=== PATIENT | female | born 1975 | race Caucasian/White ===

== ENCOUNTER 2016-10-26 15:33 | Inpatient (IN) | payer OTHER ==
--- NOTE | 2016-10-26 16:57 | EDPHY ---
H & P Stated Complaint: Abdo surgery at [facility], released yesterday, now SOB, low oxygen level. Time Seen by Provider: 10/26/16 16:41 HPI/ROS: CHIEF COMPLAINT: Shortness of breath, tachycardia HISTORY OF PRESENT ILLNESS: The patient is a 41-year-old female who was referred by her primary Dr. Toma José. She has a history of small-bowel obstruction 2 weeks ago for unknown reasons. She had laparoscopic surgery by Dr. Villatoro at [facility]. Her obstructions spontaneously resolved and they could not find a cause. She was discharged and then admitted again a few days later for 1 week. She had abdominal pain at that time and no obvious source could be found. She was discharged 2 days ago. On Sunday while she is at the hospital she had bilateral leg edema and mild shortness of breath. They did a CT scan that was negative for PE but she reports found a little bit of "fluid around her lungs ". She denies fevers or chest pain. Today she presented to her primary because she felt short of breath and her room air oxygen saturation was 82% and heart rate was 120. She was referred here. REVIEW OF SYSTEMS: Constitutional: denies: chills, fever, recent illness, recent injury EENTM: denies: blurred vision, double vision, nose congestion Respiratory: See HPI Cardiac: See HPI denies: chest pain, irregular heart rate, lightheadedness, palpitations Gastrointestinal/Abdominal: denies: abdominal pain, diarrhea, nausea, vomiting, blood streaked stools Genitourinary: denies: dysuria, frequency, hematuria, pain Musculoskeletal: denies: joint pain, muscle pain Skin: denies: lesions, rash, jaundice, bruising Neurological: denies: headache, numbness, paresthesia, tingling, dizziness, weakness Hematologic/Lymphatic: denies: blood clots, easy bleeding, easy bruising Immunologic/allergic: denies: HIV/AIDS, transplant EXAM: GENERAL: Well-appearing, well-nourished and in no acute distress. HEAD: Atraumatic, normocephalic. EYES: Pupils equal round and reactive to light, extraocular movements intact, sclera anicteric, conjunctiva are normal. ENT: TMs normal, nares patent, oropharynx clear without exudates. Moist mucous membranes. NECK: Normal range of motion, supple without lymphadenopathy or JVD. LUNGS: Breath sounds clear to auscultation bilaterally and equal. No wheezes rales or rhonchi. HEART: Regular rate and rhythm without murmurs, rubs or gallops. ABDOMEN: Soft, nontender, normoactive bowel sounds. No guarding, no rebound. No masses appreciated. BACK: No CVA tenderness, no spinal tenderness, step-offs or deformities EXTREMITIES: Normal range of motion, no pitting or edema. No clubbing or cyanosis. NEUROLOGICAL: Cranial nerves II through XII grossly intact. Normal speech, normal gait. 5/5 strength, normal movement in all extremities, normal sensation PSYCH: Normal mood, normal affect. SKIN: Warm, dry, normal turgor, no visible rashes or lesions. Source: Patient Exam Limitations: No limitations - Personal History LMP (Females 10-55): Extended Cycle BCP/Inj Current Tetanus Diphtheria and Acellular Pertussis (TDAP): Yes - Medical/Surgical History Hx Asthma: No Hx Chronic Respiratory Disease: Yes Hx Diabetes: No Hx Cardiac Disease: No Hx Renal Disease: No Hx Cirrhosis: No Hx Alcoholism: No Hx HIV/AIDS: No Hx Splenectomy or Spleen Trauma: No Other PMH: PE's, small bowel obstruction - Family History Significant Family History: No pertinent family hx - Social History Smoking Status: Never smoked Alcohol Use: Sober Drug Use: None Constitutional: Initial Vital Signs Temperature (C) 36.8 C 10/26/16 15:41 Heart Rate 125 H 10/26/16 15:41 Respiratory Rate 18 10/26/16 15:41 Blood Pressure 136/104 H 10/26/16 15:41 O2 Sat (%) 91 L 10/26/16 15:41 O2 Delivery Mode Nasal Cannula O2 (L/minute) 2 Allergies/Adverse Reactions: gluten Allergy (Verified 10/26/16 15:45) Home Medications: Medication Instructions Recorded Herbals/Supplements -Info Only 1 dose AD 10/26/16 Hydrocodone/Acetaminophen [[place] 1 - 2 tab PO Q4H PRN 10/26/16 5/325 (*)] Levothyroxine Sodium 150 mcg PO DAILY@0500 10/26/16 Ondansetron Odt 4 mg PO Q4 PRN 10/26/16 Ranitidine HCl 150 mg PO DAILY 10/26/16 Medical Decision Making - Diagnostics EKG Interpretation: An EKG obtained and was read and documented in trace view. Please see trace view for full reading and report. Sinus tach, diffuse nonspecific T-wave abnormality Imaging: Discussed imaging studies w/ machine scallop cutter Radiologist ED Course/Re-evaluation: 7:15 p.m. the patient has bilateral pleural effusions right greater than left. I believe this is responsible for her tachycardia and hypoxia. I recommended thoracentesis. On bedside ultrasound the fluid collection is not obvious. I have consulted IR to evaluate. Ultrasound is the room now. I discussed the case with Dr. Barrientos who will admit to the medical service. The patient had right thoracentesis done by interventional Radiology. She is now breathing comfortably and is no longer tachycardic. Lab work is pending. She is being admitted to the hospital. Differential Diagnosis: Partial list of the Differential diagnosis considered include but were not limited to; pleural effusion, pericardial effusion, PE and although unlikely based on the history and physical exam, I also considered pneumonia, acute coronary disease, infection. - Data Points Laboratory Results: Laboratory Results 10/26/16 17:10 10/26/16 17:10 10/26/16 17:10 Smear Review By Lisbeth NEUMANN MD Medications Given: Acetaminophen (Tylenol) 650 mg PO Q4HRS PRN PRN Reason: Pain, Mild/Fever, Can Take PO Stop: 04/24/17 19:11 Last Admin: 10/27/16 13:17 Dose: 650 mg Cetirizine HCl (Zyrtec) 10 mg PO DAILY [facility] Stop: 04/25/17 12:14 Last Admin: 10/27/16 12:59 Dose: 10 mg Levothyroxine Sodium (Synthroid) 150 mcg PO DAILY@0500 [facility] Stop: 04/25/17 13:14 Last Admin: 10/27/16 13:14 Dose: 150 mcg Montelukast Sodium (Singulair) 10 mg PO DAILY@1800 [facility] Stop: 04/25/17 12:14 Last Admin: 10/27/16 12:59 Dose: 10 mg Discontinued Medications Furosemide (Lasix Injection) 20 mg IVP ONCE ONE Stop: 10/27/16 12:37 Last Admin: 10/27/16 12:59 Dose: 20 mg Sodium Chloride (Ns) 500 mls @ 1,500 mls/hr IV ONCE ONE Stop: 10/26/16 19:31 Last Admin: 10/26/16 22:53 Dose: Not Given Departure - Departure Disposition: [facility] Acute Clinical Impression: Pleural effusion Condition: Fair
[2016-10-26 17:20] LABS: ADD DIFF? YES; ADD MORPH? NO; ATYPICAL LYMPHOCYTE FLAG 0 (0-99); FRAGMENT RBC FLAG 0 (0-99); HEMATOCRIT 43.9 % (38.0-47.0); HEMOGLOBIN 15.1 g/dL (12.6-16.3); LEFT SHIFT FLG 0 (0-99); LIPEMIA HEMOLYSIS FLAG 90 (0-99); MEAN CELL HEMOGLOBIN 29.7 pg (27.9-34.1); MEAN CELL HEMOGLOBIN CONCENTR. 34.4 g/dL (32.4-36.7); MEAN CELL VOLUME 86.2 fL (81.5-99.8); MEAN PLATELET VOLUME 10.6 fL (8.7-11.7); PLATELET CLUMPS FLAG 0 (0-99); PLATELET COUNT 324 10^3/uL (150-400); RED BLOOD CELL COUNT 5.09 10^6/uL (4.18-5.33); RED CELL DISTRIBUTION WIDTH 13.2 % (11.5-15.2)
[2016-10-26 17:27] LABS: ADD SCAN? NO
[2016-10-26 17:30] LABS: INR 1.19 (0.83-1.16); PROTIME(PATIENT) 15.1 SEC (12.0-15.0)
[2016-10-26 17:31] LABS: APTT 30.2 SEC (23.0-38.0)
[2016-10-26 17:39] LABS: ALANINE AMINOTRANSFERASE 114 IU/L (9-52); ALBUMIN 3.5 g/dL (3.5-5.0); ALKALINE PHOSPHATASE 103 IU/L (38-126); ANION GAP 13 mEq/L (8-16); ASPARTATE AMINOTRANSFERASE 124 IU/L (14-46); BILIRUBIN,TOTAL 0.6 mg/dL (0.1-1.4); BILIRUBIN-CONJUGATED 0.4 mg/dL (0.0-0.5); BILIRUBIN-UNCONJUGATED 0.2 mg/dL (0.0-1.1); CALCIUM 7.7 mg/dL (8.5-10.4); CARBON DIOXIDE 25 mEq/l (22-31); CHLORIDE 99 mEq/L (97-110); CREATININE 0.5 mg/dL (0.6-1.0); GLOMERULAR FILTRATION RATE > 60; GLUCOSE 89 mg/dL (70-100); POTASSIUM 4.5 mEq/L (3.5-5.2); SODIUM 137 mEq/L (134-144); SPECIMEN HEMOLYSIS 114; TOTAL PROTEIN 6.2 g/dL (6.3-8.2)
[2016-10-26 17:49] LABS: TROPONIN I < 0.012 ng/mL (0.000-0.034)
--- NOTE | 2016-10-26 17:51 | CPEKG ---
Heart Rate: 121 RR Interval: 496 P-R Interval: 120 QRSD Interval: 76 QT Interval: 340 QTC Interval: 483 P [place]: 43 QRS [place]: 54 T Wave [place]: -44 EKG Severity - BORDERLINE ECG - EKG Impression: SINUS TACHYCARDIA EKG Impression: BORDERLINE T ABNORMALITIES, DIFFUSE LEADS Electronically Signed By: Herbie Phillips 26-Oct-2016 18:06:52
[2016-10-26] MEDS ORDERED: IOPAMIDOL (ISOVUE 370) 100 ML BTL IV ONE ×3 (17:52→18:32)
[2016-10-26 18:21] LABS: PLATELET ESTIMATE ADEQUATE (ADEQ)
[2016-10-26] MEDS ORDERED: NS 500 ML IV ONE (19:12)
[2016-10-26] MEDS ORDERED: ONDANSETRON 4 MG/2 ML VIAL IVP PRN (19:12)
[2016-10-26] MEDS ORDERED: ONDANSETRON DISINTEGRATING 4 MG TAB PO PRN (19:12)
[2016-10-26 19:27] LABS: LACTATE DEHYDROGENASE 1463 IU/L (313-618); SPECIMEN HEMOLYSIS 134
[2016-10-26 21:32] LABS: LD, PLEURAL FLUID 472 IU/L
[2016-10-26 22:24] LABS: COLOR YELLOW; LEUKOCYTE ESTERASE,URINE NEGATIVE (NEGATIVE); NITRITE,URINE NEGATIVE (NEGATIVE)
[2016-10-27] MEDS: ACETAMINOPHEN 325 MG TAB PO PRN ×3 (01:58→20:09)
--- NOTE | 2016-10-27 03:33 | PDGENHP ---
History and Physical - Chief Complaint Shortness of Breath - History of Present Illness 41 yo F with hx of hypothyroidism presents with shortness of breath. Patient has had a complicated recent medical course. She was in her usual state of health until 3 weeks ago when she developed acute abdominal pain. She went to [facility] and was found to have an SBO. She had an exploratory laparoscopy by Dr. Villatoro that found no acute findings; the SBO had self-resolved by that point. She went home and felt well for 2 days and then again developed severe abdominal pain. She again presented to [facility] where she was hospitalized for almost 2 weeks. During that stay she had an EGD and colonoscopy, which patient reports were normal. She says scans showed only jejunal inflammation, and there are plans for future pill endoscopy , which has not yet occurred. She also states that many autoimmune tests were run that were all negative. In addition, over the last week, she has had a rising WBC and eosinophil count as well as swelling. The swelling in her legs started just prior to leaving the hospital and she was prescribed diuretics for this. Despite outpatient oral diuretics, her swelling progressed. By the time she visited her PCP in [place] on the day of admission, she was hypoxic and short of breath. At that point her PCP told her to go to the ED for evaluation. In ED she was noted to have bilateral pleural effusions. She underwent a thoracentesis with IR and her symptoms improved significantly as a result. By the time of my evaluation patient was asymptomatic but still tachycardic. History Information - Allergies/Home Medication List Allergies/Adverse Reactions: gluten Allergy (Verified 10/26/16 15:45) Home Medications: Herbals/Supplements -Info Only 1 dose AD 10/26/16 [Last Taken Unknown] Hydrocodone/Acetaminophen [[place] 5/325 (*)] 1 - 2 tab PO Q4H PRN 10/26/16 [Last Taken 10/25/16] Levothyroxine Sodium 150 mcg PO DAILY@0500 10/26/16 [Last Taken 10/26/16] Ondansetron Odt 4 mg PO Q4 PRN 10/26/16 [Last Taken Unknown] Ranitidine HCl 150 mg PO DAILY 10/26/16 [Last Taken 10/26/16] I have personally reviewed and updated: family history, medical history - Past Medical History Additional medical history: Hypothyroid - Surgical History Additional surgical history: Recent laparoscopy - Family History Positive for: CAD - Social History Smoking Status: Never smoked Alcohol Use: Sober Drug Use: None Review of Systems Review of Systems: ROS: 10pt was reviewed & negative except for what was stated in HPI & below Physical Exam Physical Exam: Temp Pulse Resp BP Pulse Ox 36.8 C 134 H 18 112/96 H 91 L 10/26/16 15:41 10/26/16 21:55 10/26/16 21:55 10/26/16 21:55 10/26/16 21:55 O2 (L/minute) 2 Constitutional: no apparent distress, appears nourished Eyes: PERRL, EOMI Ears, Nose, Mouth, Throat: moist mucous membranes, no oral mucosal ulcers Cardiovascular: no murmur, rub, or gallop, tachycardia, edema (1+ b/l MOLLY) Respiratory: no respiratory distress, other (Decreased BS at the bases) Gastrointestinal: normoactive bowel sounds, soft, non-tender abdomen Skin: warm, normal color Musculoskeletal: full muscle strength, no muscle tenderness Neurologic: AAOx3, CN II-XII Intact Psychiatric: interacting appropriately, not anxious Lab Data & Imaging Review 10/27/16 03:56 10/26/16 17:10 WBC 32.37 10^3/uL (3.80-9.50) H 10/26/16 17:10 RBC 5.09 10^6/uL (4.18-5.33) 10/26/16 17:10 Hgb 15.1 g/dL (12.6-16.3) 10/26/16 17:10 Hct 43.9 % (38.0-47.0) 10/26/16 17:10 MCV 86.2 fL (81.5-99.8) 10/26/16 17:10 MCH 29.7 pg (27.9-34.1) 10/26/16 17:10 MCHC 34.4 g/dL (32.4-36.7) 10/26/16 17:10 RDW 13.2 % (11.5-15.2) 10/26/16 17:10 Plt Count 324 10^3/uL (150-400) 10/26/16 17:10 MPV 10.6 fL (8.7-11.7) 10/26/16 17:10 Neut % (Auto) Not Reported 10/26/16 17:10 Lymph % (Auto) Not Reported 10/26/16 17:10 [place] % (Auto) Not Reported 10/26/16 17:10 Eos % (Auto) Not Reported 10/26/16 17:10 Baso % (Auto) Not Reported 10/26/16 17:10 Nucleat RBC Rel Count 0.0 % (0.0-0.2) 10/26/16 17:10 Absolute Neuts (auto) Not Reported 10/26/16 17:10 Absolute Lymphs (auto) Not Reported 10/26/16 17:10 Absolute Monos (auto) Not Reported 10/26/16 17:10 Absolute Eos (auto) Not Reported 10/26/16 17:10 Absolute Basos (auto) Not Reported 10/26/16 17:10 Absolute Nucleated RBC 0.00 10^3/uL (0-0.01) 10/26/16 17:10 Immature Gran % Not Reported 10/26/16 17:10 Seg Neutrophils % 23 % 10/26/16 17:10 Lymphocytes % 9 % 10/26/16 17:10 Monocytes % 2 % 10/26/16 17:10 Eosinophils % 66 % 10/26/16 17:10 Basophils % 1 % 10/26/16 17:10 Immature Gran # Not Reported 10/26/16 17:10 Absolute Seg Neuts 7.45 10^/uL (1.70-6.50) H 10/26/16 17:10 Absolute Lymphocytes 2.91 10^3/uL (1.00-3.00) 10/26/16 17:10 Absolute Monocytes 0.65 10^3/uL (0.30-0.80) 10/26/16 17:10 Absolute Eosinophils 21.36 10^3/uL (0.03-0.40) H 10/26/16 17:10 Absolute Basophils 0.32 10^3/uL (0.02-0.10) H 10/26/16 17:10 RBC/WBC/PLT Morphology NORMAL (NORMAL) 10/26/16 17:10 Platelet Estimate ADEQUATE (ADEQ) 10/26/16 17:10 PT 15.1 SEC (12.0-15.0) H 10/26/16 17:10 INR 1.19 (0.83-1.16) H 10/26/16 17:10 APTT 30.2 SEC (23.0-38.0) 10/26/16 17:10 Sodium 137 mEq/L (134-144) 10/26/16 17:10 Potassium 4.5 mEq/L (3.5-5.2) 10/26/16 17:10 Chloride 99 mEq/L (97-110) 10/26/16 17:10 Carbon Dioxide 25 mEq/l (22-31) 10/26/16 17:10 Anion Gap 13 mEq/L (8-16) 10/26/16 17:10 BUN 7 mg/dL (7-23) 10/26/16 17:10 Creatinine 0.5 mg/dL (0.6-1.0) L 10/26/16 17:10 Estimated GFR > 60 10/26/16 17:10 Glucose 89 mg/dL (70-100) 10/26/16 17:10 Calcium 7.7 mg/dL (8.5-10.4) L 10/26/16 17:10 Total Bilirubin 0.6 mg/dL (0.1-1.4) 10/26/16 17:10 Conjugated Bilirubin 0.4 mg/dL (0.0-0.5) 10/26/16 17:10 Unconjugated Bilirubin 0.2 mg/dL (0.0-1.1) 10/26/16 17:10 AST 124 IU/L (14-46) H 10/26/16 17:10 ALT 114 IU/L (9-52) H 10/26/16 17:10 Alkaline Phosphatase 103 IU/L (38-126) 10/26/16 17:10 Lactate Dehydrogenase 1463 IU/L (313-618) H 10/26/16 17:10 Troponin I < 0.012 ng/mL (0.000-0.034) 10/26/16 17:10 NT-Pro-B Natriuret Pep 60 pg/mL (0-125) 10/26/16 17:10 Total Protein 6.2 g/dL (6.3-8.2) L 10/26/16 17:10 Albumin 3.5 g/dL (3.5-5.0) 10/26/16 17:10 Lipase 43 IU/L (23-300) 10/26/16 17:10 Specimen Hemolysis 134 10/26/16 17:10 Urine Color YELLOW 10/26/16 21:35 Urine Appearance CLEAR 10/26/16 21:35 Urine pH 6.0 (5.0-7.5) 10/26/16 21:35 Ur Specific [place] > 1.035 (1.002-1.030) H 10/26/16 21:35 Urine Protein NEGATIVE (NEGATIVE) 10/26/16 21:35 Urine Ketones 2+ (NEGATIVE) H 10/26/16 21:35 Urine Blood NEGATIVE (NEGATIVE) 10/26/16 21:35 Urine Nitrate NEGATIVE (NEGATIVE) 10/26/16 21:35 Urine Bilirubin NEGATIVE (NEGATIVE) 10/26/16 21:35 Urine Urobilinogen NEGATIVE EU (0.2-1.0) 10/26/16 21:35 Ur Leukocyte Esterase NEGATIVE (NEGATIVE) 10/26/16 21:35 Urine Glucose NEGATIVE (NEGATIVE) 10/26/16 21:35 Fluid pH Cancelled 10/26/16 20:20 Pleural Fluid Source PLEURAL 10/26/16 20:20 Pleural Color YELLOW (STRAW/YELL) 10/26/16 20:20 Pleural Appearance SL. HAZY (CLEAR) H 10/26/16 20:20 Pleural pH 7.6 (6.8-7.6) 10/26/16 20:20 Pleural WBC 4044 /mm3 10/26/16 20:20 Pleural RBC 7891 /MM3 10/26/16 20:20 Pleural LDH 472 IU/L 10/26/16 20:20 Pleural Glucose 86 mg/dL (55-113) 10/26/16 20:20 Imaging Review: CTA chest and Abd U/S performed. Results notable for: No PE, b/l pleural effusions R>L, diffuse esophageal thickening, and ascites. EKG Interpretation: Positive for: normal sinsus rhythm (Tachycardia) Assessment & Plan Assessment: 41 yo F w/ hx of hypothyroid presents with complex clinical course marked by unexplained anasarca and severe eosinophilia after recent admission at outside hospitals for abdominal pain. Plan: 1. Severe eosinophilia - WBC 32k with 66% eosinophils (21K absolute). Etiology of this unclear but would favor myeloproliferative disorder noting extreme elevation. Autoimmune, allergic, and infectious etiologies are also on the differential. Patient was recently hospitalized at [facility] and had extensive work-up, per patient, which did not elucidate a cause. She says extensive autoimmune work-up was negative. However, I believe that work-up was aimed at ascertaining a cause of her abdominal pain(now resolved), not specifically the eosinophilia. Per patient, she had mild eosinophilia at that point and was told it may have been a reaction to ranitidine or cyclobenzaprine. - Obtain records from [facility] - For now will send limited work-up: cytology (added to pleural fluid), SPEP, strongyloides IgG, and peripheral smear - Hematology consult for consideration of malignancy - Patient following with outpatient ID doctor 2. Anasarca - As evidenced by bilateral pleural effusions, ascites, and lower extremity edema. This progressed despite therapy with outpatient diuretics over the last week. Patient has no hx of cardiac, hepatic, or renal disease. Albumin 3.5 and UA without protein. Thoracentesis performed shortly after admission for symptomatic relief of SOB and diagnostic purposes as well. Pleural fluid was exudative by both protein and LDH criteria; particularly notable for WBC of 4k ( 91% eosinophils). I suspect anasarca is most likely related to the same process driving the eosinophilia, and may be a sign of organ dysfunction related to this. - Will order TTE to assess cardiac function - Will hold off on diuresis currently noting tachycardia 3. Tachycardia - 130s on admission and improving throughout the night after thoracentesis. However, still elevated in the 100-110 range. Sinus tachycardia on ECG. It seems patient is leaking fluid into peripheral tissues (pleural effusions, anasarca, MOLLY) and intravascularly deplete. I do not believe patient is currently infected noting lack of symptoms, but will need close monitoring for this. - Encouraged PO fluid intake - Will avoid IVF for now as it may cause reaccumulation of pleural fluid and respiratory distress. However, if tachycardia worsens, will need IVF. 4. Diffuse esophageal wall thickening - Incidentally found and of unclear significance. However, this is interesting noting that patient reports she was told at [facility] that her imaging had showed "jejunal thickening". Possibly this represents eosinophilic infiltration noting above. 5. Abnormal LFTs - Mild transaminitis noted on admission, fits picture of diffuse inflammation. Trend LFTs. 6. Hypothyroid - On Levoxyl(gluten free thyroid hormone) as outpatient, will check TSH. - Patient's own Levoxyl sent to pharmacy for verification Diet - Regular Code - Full Ppx - SCDs Dispo - Admit to observation
[2016-10-27 05:04] LABS: ADD DIFF? YES; ADD MORPH? NO; ATYPICAL LYMPHOCYTE FLAG 0 (0-99); FRAGMENT RBC FLAG 0 (0-99); HEMATOCRIT 41.3 % (38.0-47.0); HEMOGLOBIN 14.1 g/dL (12.6-16.3); LEFT SHIFT FLG 0 (0-99); LIPEMIA HEMOLYSIS FLAG 90 (0-99); MEAN CELL HEMOGLOBIN 29.9 pg (27.9-34.1); MEAN CELL HEMOGLOBIN CONCENTR. 34.1 g/dL (32.4-36.7); MEAN CELL VOLUME 87.5 fL (81.5-99.8); MEAN PLATELET VOLUME 11.3 fL (8.7-11.7); PLATELET CLUMPS FLAG 10 (0-99); PLATELET COUNT 292 10^3/uL (150-400); RED BLOOD CELL COUNT 4.72 10^6/uL (4.18-5.33); RED CELL DISTRIBUTION WIDTH 13.2 % (11.5-15.2)
[2016-10-27 05:13] LABS: ADD SCAN? NO
[2016-10-27 05:50] LABS: PLATELET ESTIMATE ADEQUATE (ADEQ)
[2016-10-27] MEDS ORDERED: FUROSEMIDE 20 MG/2 ML VIAL IVP ONE ×2 (06:00→12:36)
[2016-10-27 08:32] LABS: ALANINE AMINOTRANSFERASE 126 IU/L (9-52); ALBUMIN 3.2 g/dL (3.5-5.0); ALKALINE PHOSPHATASE 117 IU/L (38-126); ANION GAP 15 mEq/L (8-16); ASPARTATE AMINOTRANSFERASE 140 IU/L (14-46); BILIRUBIN,TOTAL 0.6 mg/dL (0.1-1.4); CALCIUM 7.6 mg/dL (8.5-10.4); CARBON DIOXIDE 25 mEq/l (22-31); CHLORIDE 100 mEq/L (97-110); CREATININE 0.5 mg/dL (0.6-1.0); GLOMERULAR FILTRATION RATE > 60; GLUCOSE 87 mg/dL (70-100); POTASSIUM 3.8 mEq/L (3.5-5.2); SODIUM 140 mEq/L (134-144); TOTAL PROTEIN 5.8 g/dL (6.3-8.2)
[2016-10-27] MEDS ORDERED: HYDROCODONE/APAP 5/325 TAB PO PRN (10:26)
[2016-10-27] MEDS ORDERED: Herbals/Supplements -Info Only PO SCH (10:30)
--- NOTE | 2016-10-27 11:36 | HOSPPROG ---
Hospitalist Progress Note Assessment/Plan: I personally reviewed OSH records as follows: 1. CT a/p 10/11: R adexnal cyst, normal liver 2, Ex-lap: erythema small bowel 3. Negative O&P, strongyloides from [facility] 4. CTA 10/23: pleural effusions, ascites 5. TTE unremarkable #Eosinophilia -sudden onset at OSH. New meds then: Pepto, Benytl, Vicodin, PPI that usually not associated with eosinophilia -Per patient underwent ex lap, upper/lower endoscopy that were normal. I spoke with her ID doc, Dr. Reveles: negative O&P, strongyloides -Meds: Flexeril was stopped -BM biopsy would be appropriate for proliferative disease -SPEP pending -oncology to evaluate #Leukocytosis: suspect systemic inflammation. No infectious symptoms #Acute hypoxemic resp failure: due to effusion -s/p thoracentesis, 400mL. 91% eosinophils #Anasarca: ascites/effusions/ LE edema: suspect due to underlying inflammatory process. No proteinuria, alb 3.5. Echo pending -dose IV lasix #h/o asthma: last treated 2013 #diet: regular DVT ppx: SCDs Time spent on visit: 75 min evaluating pt, reviewing OSH records, counseling patient and d/w Dr. Harry on phone # Subjective: LE edema, no dizziness Objective: Vital Signs Temp Pulse Resp BP Pulse Ox 36.9 C 108 H 24 H 108/88 H 91 L 10/27/16 07:14 10/27/16 07:14 10/27/16 07:14 10/27/16 07:14 10/27/16 07:14 Microbiology 10/26/16 20:20 Gram Stain - Final Thoracic Fluid - Aspirate Laboratory Results 10/27/16 03:56 10/27/16 07:34 10/26/16 10/27/16 10/28/16 05:59 05:59 05:59 Intake Total 450 Output Total 800 Balance -350 PT 15.1 SEC (12.0-15.0) H 10/26/16 17:10 INR 1.19 (0.83-1.16) H 10/26/16 17:10 - Physical Exam Constitutional: no apparent distress Eyes: PERRL Ears, Nose, Mouth, Throat: moist mucous membranes Cardiovascular: regular rate and rhythym, tachycardia, edema (+1 LE edema, BL) Respiratory: no respiratory distress, other (decresased BS at bases) Gastrointestinal: normoactive bowel sounds, soft, non-tender abdomen, ascites, distension Genitourinary: no bladder fullness, no bladder tenderness Skin: warm Musculoskeletal: full muscle strength, normal joint ROM, No no muscle tenderness , No joint effusion ICD10 Worksheet Patient Problems: Problems Problem Status Onset Pleural effusion Acute
[2016-10-27] MEDS: MONTELUKAST SODIUM 10 MG TAB PO SCH ×2 (12:59→20:09)
[2016-10-27] MEDS: CETIRIZINE 10 MG TAB PO SCH (12:59)
[2016-10-27] MEDS: LEVOTHYROXINE 150 MCG TAB PO SCH (13:14)
--- NOTE | 2016-10-27 13:47 | ASMTCMCOM ---
CM Note CM Note Notes: CM reviewed chart, pt is a 41 y/o female admitted w/ shortness of breath. Pt will have TTE today and will most likely discharge independent without any needs when medically sable. CM available for any changes. Date Signed: 10/27/2016 01:46 PM Electronically Signed By:BANDAR Garcia
--- NOTE | 2016-10-27 13:49 | GPN ---
[f rep st] PROCEDURE NOTE PROCEDURE: Bone marrow aspirate and biopsy. REASON FOR PROCEDURE: Rising eosinophilic count with systemic symptoms. DESCRIPTION OF PROCEDURE: Risks of the procedure including infection, bleeding and discomfort were e xplained to the patient; and written consent was obtained. She was laid on her stomach, and her righ t iliac crest was prepped and draped in the usual fashion. Then 5 mL of 1% lidocaine was infused int o the area with some minor discomfort. Bone marrow was entered, and aspirate was obtained for slides and special studies. Bone marrow was then re-entered, and a 1-2 cm core biopsy was obtained without incident. Band-Aid was applied, and instructions given to nursing. She tolerated the procedure yuliana leslie /[id number]/MODL
--- NOTE | 2016-10-27 14:24 | GCON ---
[f rep st] CONSULTATION REFERRING PHYSICIAN: Renee Barrientos MD PRIMARY ONCOLOGIST: Dr. Gwendolyn Ojeda. REASON FOR CONSULTATION: Rising eosinophils. HISTORY OF PRESENT ILLNESS: Caitlin is a 41-year-old woman, has been generally healthy until the last m onth. She started having acute abdominal pain about 3 or so weeks ago. She lives in [place] works in [place] but has followed Dr. Ojeda for greater than 15 years. Since she was at work when she had abdominal pain, she was taken [facility] and she was found to have a small bowel o bstruction. An exploratory laparoscopy by Dr. Villatoro found no abnormalities and resolved spontaneously. She went home and then she developed severe abdominal pain again. She, again, re-presented back to the same hospital and was in there for a couple weeks, including hav ing upper and lower endoscopy and workup for autoimmune disorders, which she reports was all negative . It was noticed that she was having a rising white count and eosinophilic count. Her white count a bout 10 days ago was 11,000 and when she was discharged on Sunday this week, it was up to 22,000. She was seen by Dr. Levy with Hematology on Sunday and at the time he felt it was unrelated, but w anted to see her back in the office in a few days. She went home and then she started developing inc reasing lower extremity swelling and was placed on Lasix. The swelling continued to worsen and she b ecame progressively short of breath. She denies chest pain and the abdominal pain is much improved. She saw Dr. José, who is covering for Dr. Ojeda, sent her to the ER for evaluation because of her sy mptoms. While there, she was noted to have bilateral pleural effusions and underwent thoracentesis o n the right and removed 400 mL of fluid. She was also noted to have a white count of 32,000 and most of it was eosinophils. She denies any unexplained weight loss, night sweats, fever, or any skin shaquille h. PAST MEDICAL HISTORY: She has a gluten allergy. HOME MEDICATIONS: Included ranitidine 150 mg daily. Ondansetron as needed for nausea. Levothyroxin e 150 mcg daily. Ceres as needed. She also was recently on Lasix. CHRONIC ILLNESSES: 1. She had abnormal cells on a thyroid biopsy, so underwent thyroidectomy, but there was no cancer. This is why she is on replacement. 2. She had a pulmonary embolism 17 years ago with a deep venous thrombosis in the right upper extrem ity. She was admitted to [facility] and hypercoagulable workup was unremarkable. Brittany nova has not had any problems since that time. 3. She also has acid reflux. SOCIAL HISTORY: Denies smoking. She drinks alcohol only occasionally. She has a boyfriend. No chi ldren. FAMILY HISTORY: No history of blood or cancer problems. Both her parents are still living. REVIEW OF SYSTEMS: 10-point review of systems was performed. Pertinent positives per HPI, otherwise negative. PHYSICAL EXAM: VITAL SIGNS: Temperature is 36.9, pulse is currently 108, blood pressure is 108/88, saturating 91% on 1 L. Her heart rate was as high as 134 when she first came in. GENERAL: She is n o distress. HEENT: Sclerae nonicteric. Extraocular muscles are intact. Oral mucosa is unremarkabl e. LUNGS: Some decreased in the bases but otherwise clear without wheezing. CARDIAC: Tachycardic but regular. I do not appreciate a rub. ABDOMEN: Still mildly tender. I do not appreciate any hep atosplenomegaly. NODE: No peripheral lymphadenopathy. SKIN: Unremarkable. MUSCULOSKELETAL: Nont sean over spine. NEURO: Grossly intact. LABS: White count is 32,300. Normal hemoglobin and platelet count. Absolute eosinophilic count is 23,000. Basophils are also increased. Coags are unremarkable. Chemistries: Her bilirubin is joseluis l, but her AST and ALT is elevated at 140 and 26. Albumin is down to 3.2. Lipase is normal and TSH is normal. LDH is elevated at 1400. Pleural fluid: Increased white cells of about 4000 with about 7800 red cells. It was 91% eosinophils. LDH on the pleural fluid was 472. DIAGNOSTIC DATA: CT angiogram showed no PE. She had a moderate right pleural effusion, a small left , and some associated ascites and diffuse esophageal wall thickening which was nonspecific. Upper ab domen was otherwise unremarkable. Abdominal ultrasound showed a moderate ascites. Liver appeared to be grossly normal. EKG showed sinus tachycardia. IMPRESSION: 1. Right elevated and rising eosinophilia. 2. Vague abdominal pain without clear source. 3. Pleural effusion with eosinophilia. My concern is if the patient may be developing a systemic mastocytosis. The best way to determine if this is going on would be to biopsy one of the organs and usually the bone marrow is the best place to look. I recommend doing a bone marrow biopsy today and she is agreeable. If that is unrevealing, she may need a liver biopsy. In the meantime, recommend starting her on antihistamines and antileukotriene drugs and continue the H2 blockers. I would like to hold off steroids for now, but that could be added down the road if she continues to have problems. I also recommend getting an echocardiogram, if that has not already bee n ordered. Definitely systemic mastocytosis can cause GI symptoms much like she has described. We w ill follow along with you, but if she stabilizes, even if we do not have final answer, she can go anderson e and follow up in our office. I will also send for serum tryptase as well as serum KIT mutations an d JAK2 mutation. /[id number]/MODL
--- NOTE | 2016-10-27 14:26 | ECHO ---
[id number] + + [address] : : [place] [address] : : [phone] + Adult Echocardiographic Report + -----+ :Name: LINDA DRAKE NStudy Date: 10/27/2016 08:04 AM : : Hospital Admission Number: [id number] Location : 215: :: 1975 Gender: Female Height: 68 in : :Age: 41 yrs Race: WH Weight: 200 lb : :Reason For Study: Eval LV Fx : : BSA: 2.0 meters2 : :History: Tachycardia, Anasarca, Pleural Effusion : + -----+ MMode/2D Measurements & Calculations IVSd: 0.77 cm LVIDd: 4.1 cm FS: 38.0 % Ao root diam: 2.9 cm LVPWd: 0.88 cm LVIDs: 2.5 cm EDV(Teich): 73.3 ml ACS: 1.6 cm ESV(Teich): 22.9 ml EF(Teich): 68.7 % Normal Measurement Values: + + :LVIDd (3.5-5.7cm) IVSd (0.6-1.1cm) LVPWd (0.6-1.1cm) Aortic Root (2.0-3.7cm)Left Atrium (1.5-4.0cm): :LV Vol(d) (76-115ml) LV Vol(s) (29-48ml) Ejec Fraction (50-65%)PV Pepito (0.6- 1.2m/s) TV Pepito (0.4-1.0m/s) : :MV E Peipto (0.8-1.0m/s)MV A Pepito (0.3-1.0m/s)LVOT Pepito (0.7-1.2m/s) Asc Ao Pepito ( 0.9-1.8m/s) : + + Doppler Measurements & Calculations MV E max pepito: Ao V2 max: LV V1 max: PA V2 max: 60.7 cm/sec 157.5 cm/sec 108.6 cm/sec 112.7 cm/sec MV A max pepito: Ao max PG: LV V1 max PG: PA max P.1 cm/sec 9.9 mmHg 4.7 mmHg 5.1 mmHg MV E/A: 0.88 Left Ventricle The left ventricle is normal in size. There is normal left ventricular wall thickness. The left ventricular ejection fraction is normal. Tachycardia. Ejection Fraction = 68%. Right Ventricle The right ventricle is normal in size and function. Atria The left atrial size is normal. Right atrial size is normal. Mitral Valve The mitral valve is normal in structure and function. There is no mitral valve stenosis. There is no mitral regurgitation noted. Tricuspid Valve The tricuspid valve is normal in structure and function. No tricuspid regurgitation. Aortic Valve The aortic valve is normal in structure and function. The aortic valve is trileaflet. There is no aortic stenosis. There is no aortic insufficiency. Pulmonic Valve The pulmonic valve is normal in structure and function. There is no pulmonic valvular regurgitation. Great Vessels The aortic root is normal size. Pericardium/Pleural There is no pericardial effusion. There is a large pleural effusion. Conclusion A complete two-dimensional transthoracic echocardiogram was performed (2D, M-mode, Doppler and color flow Doppler). The left ventricular ejection fraction is normal. Tachycardia Ejection Fraction = 68%. The tricuspid valve is normal in structure and function. The aortic valve is normal in structure and function. The aortic valve is trileaflet. The aortic root is normal size. There is no pericardial effusion. There is a large pleural effusion. Final Reading Physician: Flower Long signed on 10/27/2016 02:25 PM Ordering Physician: Asher Bergman Performed By: Jaycob Calvert, DANNYCS
[2016-10-27] MEDS ORDERED: ALBUMIN 25% 100 ML IV ONE (17:32)
[2016-10-27] MEDS: FAMOTIDINE 20 MG TAB PO SCH (20:09)
[2016-10-28] MEDS ORDERED: ALBUTEROL 3 ML DEYVIAL IH PRN (04:23)
[2016-10-28] MEDS: LEVOTHYROXINE 150 MCG TAB PO SCH (04:55)
[2016-10-28] MEDS ORDERED: LEVOTHYROXINE 150 MCG TAB PO SCH (05:00)
[2016-10-28] MEDS ORDERED: D5W IV ONE (05:38)
[2016-10-28] MEDS ORDERED: FUROSEMIDE IV ONE (05:38)
[2016-10-28] MEDS ORDERED: FUROSEMIDE 20 MG/2 ML VIAL IVP ONE (06:05)
[2016-10-28 08:30] VITALS: TEMP 98.1
[2016-10-28] MEDS: CETIRIZINE 10 MG TAB PO SCH (09:11)
[2016-10-28 10:10] LABS: ADD DIFF? YES; ADD MORPH? NO; ATYPICAL LYMPHOCYTE FLAG 0 (0-99); FRAGMENT RBC FLAG 0 (0-99); HEMATOCRIT 38.9 % (38.0-47.0); HEMOGLOBIN 13.4 g/dL (12.6-16.3); LEFT SHIFT FLG 0 (0-99); LIPEMIA HEMOLYSIS FLAG 90 (0-99); MEAN CELL HEMOGLOBIN 29.9 pg (27.9-34.1); MEAN CELL HEMOGLOBIN CONCENTR. 34.4 g/dL (32.4-36.7); MEAN CELL VOLUME 86.8 fL (81.5-99.8); MEAN PLATELET VOLUME 10.8 fL (8.7-11.7); PLATELET CLUMPS FLAG 10 (0-99); PLATELET COUNT 293 10^3/uL (150-400); RED BLOOD CELL COUNT 4.48 10^6/uL (4.18-5.33); RED CELL DISTRIBUTION WIDTH 13.2 % (11.5-15.2)
[2016-10-28 10:13] LABS: ADD SCAN? NO
[2016-10-28 10:56] LABS: ANION GAP 15 mEq/L (8-16); CALCIUM 7.8 mg/dL (8.5-10.4); CARBON DIOXIDE 26 mEq/l (22-31); CHLORIDE 98 mEq/L (97-110); CREATININE 0.5 mg/dL (0.6-1.0); GLOMERULAR FILTRATION RATE > 60; GLUCOSE 79 mg/dL (70-100); POTASSIUM 3.5 mEq/L (3.5-5.2); SODIUM 139 mEq/L (134-144)
[2016-10-28 11:12] LABS: PLATELET ESTIMATE ADEQUATE (ADEQ)
[2016-10-28] MEDS: FAMOTIDINE 20 MG TAB PO SCH (12:29)
--- NOTE | 2016-10-28 12:43 | SOAPPROG ---
SOAP Progress Note Assessment/Plan: Assessment/Plan: 41yo woman w recent hx of bowel obstruction and other unexplained abdominal pain who p/w shortness of breath and lab findings c/w eosinophilia 1. Eosinophilia - concern for mastocytosis BMBx done 10/[address] Joiner will follow at as outpt tryptase, c-kit, and Jak2 pending eosinophils stable on zyrtec, pepcid, and singulair 2. abd pain -unclear source, SBO resolved on own auto-immune w/u at outside hospital negative 3. Pleural effusions/ascites - s/p thoracentesis on R (90% eosinophils) s/p albumin OK to follow as outpt if felt medically stable to discharge would follow w Dr Noel Joiner early next week 10/28/16 12:37 10/28/16 12:43 10/28/16 12:45 Subjective: Sitting up in chair NAD mild posterior MONSON Objective: Vital Signs Temp Pulse Resp BP Pulse Ox 36.7 C 105 H 17 123/76 H 93 10/28/16 08:00 10/28/16 08:00 10/28/16 08:00 10/28/16 08:00 10/28/16 08:00 Microbiology 10/26/16 20:20 Gram Stain - Final Thoracic Fluid - Aspirate Laboratory Results 10/28/16 09:37 10/28/16 09:37 10/27/16 10/28/16 10/29/16 05:59 05:59 05:59 Intake Total 450 1450 Output Total 800 3225 Balance -350 -1775 PT 15.1 SEC (12.0-15.0) H 10/26/16 17:10 INR 1.19 (0.83-1.16) H 10/26/16 17:10 Gen - NAD HEENT - anicteric sclera; no neck rigidity CV - RRR Chest - decreased BS at LLL Abd -soft, NT, BS+ Ext - mild LE edema skin - no rash ICD10 Worksheet Patient Problems: Problems Problem Status Onset Pleural effusion Acute
[2016-10-28 12:55] VITALS: BP 134/80; PULSE 119; RESP 18; O2SAT 90
--- NOTE | 2016-10-28 14:34 | ASMTCMCOM ---
CM Note CM Note Notes: SWer checked in w/ bedside RN. Pt. to d/c independently today. Date Signed: 10/28/2016 02:33 PM Electronically Signed By:Lacie Ocampo LCSW
--- NOTE | 2016-10-28 17:04 | ASDISCHSUM ---
Discharge Information Plan Status:Home with No Needs Medically Cleared to Leave: Discharge Date:10/28/2016 02:47 PM CM D/C Disposition:Home, Routine, Self-Care ADT D/C Disposition:Home, Routine, Self-Care Projected Discharge Date:10/28/2016 12:00 AM Transportation at D/C: Discharge Delay Reason: Follow-Up Date:10/28/2016 12:00 AM Discharge Slot: Final Diagnosis: Placement Information Patient Contact Information Contact Name:GRAYSON Relationship:Other Address: Work Phone: City: [facility] Phone: State/Zip Code: Email: Financial Information Financial Class:HMO and PPO Plans Primary Plan Desc:EBRTHA CARTER Primary Plan Number:[id number] Secondary Plan Desc: Secondary Plan Number: Assessment Information [facility] CM Progress Note CM Note CM Note Notes: CM reviewed chart, pt is a 41 y/o female admitted w/ shortness of breath. Pt will have TTE today and will most likely discharge independent without any needs when medically sable. CM available for any changes. Date Signed: 10/27/2016 01:46 PM Electronically Signed By:BANDAR Garcia [facility] CM Progress Note CM Note CM Note Notes: SWer checked in w/ bedside RN. Pt. to d/c independently today. Date Signed: 10/28/2016 02:33 PM Electronically Signed By:Lacie Ocampo LCSW Intervention Information
--- NOTE | 2016-10-29 04:24 | GDS ---
[f rep st] DISCHARGE SUMMARY DISCHARGE DIAGNOSES: 1. Profound eosinophilia, suspect possible systemic mastocytosis. 2. Pleural effusion status post thoracentesis. 3. Ascites. 4. Increased liver function tests. 5. Status post bone marrow biopsy. 6. Acute respiratory failure. HISTORY: The patient a 41-year-old female who has had an extensive recent past medical history, incl uding a small bowel obstruction, for which she underwent exploratory laparotomy that was negative at [facility]. She developed a pleural effusion, ascites, and a profound eosinophilia. She has previously been worked up for autoimmune disorders and parasite infection. It was negative. Her eo sinophilia has rapidly worsened, making it more clear that this may be a primary eosinophilic disorde r, concerning for systemic mastocytosis. She was seen here in consultation with Dr. Stephania Joiner, wh o performed a bone marrow biopsy. Those results will not be available for a few days. She is, other penny, looking quite good and stable and okay for discharge home for outpatient followup and receiving bone marrow biopsy results as an outpatient. Dr. Joiner did start her empirically on Singulair and Z yrtec, and she does feel much better. She did get some mild diuresis for her anasarca, and that has also improved. She is 90% on room air on the day of discharge, and so no home oxygen is required. DISCHARGE MEDICATIONS: Please see computer record for full detailed list. New medications: 1. Zyrtec 10 mg p.o. daily. 2. Singulair 10 mg p.o. daily. 3. Pepcid 20 mg p.o. b.i.d. 4. Albuterol 1 to 2 puffs q.4 hours as needed. 5. Lasix 20 mg p.o. daily as needed. 6. Z-Florentino for possible acute bronchitis, given new productive cough. DISCHARGE INSTRUCTIONS: Follow up with Dr. Joiner [facility] for bone marrow biopsy results when ready. An ticipate need for steroid treatment, although Dr. Joiner did not want that initiated until after a fir m diagnosis has been established. Greater than 30 minutes' time spent arranging this discharge. Patient seen and examined by me on the day of discharge. /[id number]/MODL
[2016-10-30 15:37] LABS: FINAL DIAGNOSIS See Comments; MICROSCOPIC DESCRIPTION See Comments; SPECIAL STUDIES See Comments
[2016-10-31 16:35] LABS: JAK2 RESULT see interpretation; JAK2 V617F MUTATION DETECTION See Comments
[2016-10-31 16:47] LABS: MISCELLANEOUS TEST See Comments
== END 2016-10-28 14:47 | disposition home or self-care (01) | DRG 814 ==
LOC: OBSVTOIN 19:17 → F2W 21:25
PROVIDERS: ADMIT Hospitalist; ATTEND Hospitalist
PROC: 0W993ZZ Drainage of Right Pleural Cavity, Percutaneous Approach (ICD-10-PCS; 2016-10-26)
PROC: 07DR3ZX Extraction of Iliac Bone Marrow, Percutaneous Approach, Diagnostic (ICD-10-PCS; principal; 2016-10-27)
DX: D72.1 Eosinophilia (principal); J96.00 Acute respiratory failure, unspecified whether with hypoxia or hypercapnia; D47.0 Mast cell neoplasms of uncertain behavior; J90 Pleural effusion, not elsewhere classified; R18.8 Other ascites; Z86.711 Personal history of pulmonary embolism; E03.9 Hypothyroidism, unspecified
CPT/HCPCS: 81439-90; 83520-90; 85060-90; 86334-90; 86682-90; 88184-90; 88185-91; 88237-90; 88262-90; J1940; P9047; Q9967

== ENCOUNTER 2016-11-15 07:04 | Inpatient (IN) | payer OTHER ==
--- NOTE | 2016-11-15 07:17 | EDPHY ---
HPI/HX/ROS/PE/MDM Narrative: CHIEF COMPLAINT: Lower abdominal pain HPI: The patient is a 41 y/o female with an extensive recent past medical history including a small bowel obstruction, complaining of lower abdominal pain. She underwent an exploratory laparotomy, and subsequently developed a pleural effusion, eosinophilia, and ascites. She reports that the mastocytosis diagnosis was negative. The intermittent pain began on , 6 days ago, but it has worsened today to an 8 or 9/10. She admits to using Vicodin but this has decreased its effectiveness. The patient admits to becoming sick immediately after eating. She has also developed diarrhea since , but today it is clear and mucous-like. Denies fever, chills, vomiting or other pertinent symptoms. REVIEW OF SYSTEMS: Aside from elements discussed in the HPI, a comprehensive 10-point review of systems was reviewed and is negative. PMH: Small bowel obstruction, pleural effusion, eosinophilia (possible systematic mastocytosis), ascites, acute respiratory failure SOCIAL HISTORY: Lives in [place], boyfriend at bedside, works for [employer] Prior medical records reviewed including discharge summary from Dr. Barrientos on 10/28/16. PHYSICAL EXAM: General:Patient is alert, in no acute distress. ENT:Eyes are normal to inspection. ENT inspection normal. Neck: Normal inspection. Full range of motion. Respiratory:No respiratory distress. Breath sounds normal bilaterally. Cardiovascular: Regular rate and rhythm. Strong peripheral pulses. Normal cap refill. Abdomen: Diffuse mild abdominal tenderness and moderate suprapubic tenderness to palpation. There are no peritoneal signs. There are normal bowel sounds. Back: Normal to inspection. No tenderness to palpation. Skin: Normal color. No rash. Warm and dry. Extremities: Normal appearance. Full range of motion. Neuro: Oriented x3. Normal motor function. Normal sensory function. Portions of this note were transcribed by an ED scribe. I personally performed the history, physical exam, and medical decision making; and confirm the accuracy of the information in the transcribed note. ED Course: The patient is a 41 y/o female with an extensive recent past medical history including an obstructed small bowel 20 days ago. She had an exploratory laparotomy performed and subsequently developed a pleural effusion, eosinophilia , and ascites. She presents with diffuse mild abdominal tenderness and moderate suprapubic tenderness to palpation. 0820: The patients x-ray shows a small intestine bowel obstruction. Plan on abdominopelvic CT. Plan on admitting this patient. 0842: Consulted with Dr. Velazquez, oncologist, he recommends referring to a hospitalist, but accepts to consult on this patient. 0926: Spoke with Dr. Lua, radiologist, he reports the patient has a small intestine bowel obstruction. 0935: Consulted with Dr. Lewis, general surgeon, she does not believe emergency surgery is needed. She agrees to consult on this patient. 1013: Spoke with hospitalist service, Dr. Benedict accepts admission of this patient. Reassessed patient and discussed plan for admission. Patient is comfortable with this plan. - Data Points Imaging Results: Imaging Impressions Abdomen X-Ray 11/15/16 07:51 Impression: Mild to moderate partial SBO suspected. Abdomen CT 11/15/16 08:16 Impression: 1. Small bowel obstruction with relatively smooth transition in the left abdomen with segmental circumferential small bowel thickening, most prominent in the ileum, suggesting inflammatory or infectious enteritis. Crohn's could have this appearance. 2. Nonspecific wall thickening of the distal stomach/pylorus and proximal duodenum. This could be related to inflammation or underdistention. 3. Ascites without visible abscess. 4. Small right and trace left pleural effusions. 5. Additional findings as above. Findings discussed with Colton Norris M.D. on November 15, 2016 at 9:24 a.m. Imaging: Discussed imaging studies w/ call center dispatcher Radiologist, I viewed and interpreted images myself Laboratory Results: Laboratory Results 11/15/16 07:20 11/15/16 07:20 11/15/16 11/15/16 11/15/16 07:50 07:20 07:20 WBC 17.14 10^3/uL H 10^3/uL (3.80-9.50) RBC 4.95 10^6/uL 10^6/uL (4.18-5.33) Hgb 14.5 g/dL g/dL (12.6-16.3) Hct 42.4 % % (38.0-47.0) MCV 85.7 fL fL (81.5-99.8) MCH 29.3 pg pg (27.9-34.1) MCHC 34.2 g/dL g/dL (32.4-36.7) RDW 13.5 % % (11.5-15.2) Plt Count 382 10^3/uL 10^3/uL (150-400) MPV 10.9 fL fL (8.7-11.7) Neut % (Auto) Not Reported Lymph % (Auto) Not Reported Highlands % (Auto) Not Reported Eos % (Auto) Not Reported Baso % (Auto) Not Reported Nucleat RBC Rel Count 0.0 % % (0.0-0.2) Absolute Neuts (auto) Not Reported Absolute Lymphs (auto) Not Reported Absolute Monos (auto) Not Reported Absolute Eos (auto) Not Reported Absolute Basos (auto) Not Reported Absolute Nucleated RBC 0.00 10^3/uL 10^3/uL (0-0.01) Immature Gran % Not Reported Seg Neutrophils % 44 % % Band Neutrophils % 2 % % Lymphocytes % 21 % % Monocytes % 4 % % Eosinophils % 29 % % Immature Gran # Not Reported Absolute Seg Neuts 7.54 10^/uL H 10^/uL (1.70-6.50) Absolute Band Neuts 0.34 10^3/uL 10^3/uL (0.00-0.70) Absolute Lymphocytes 3.60 10^3/uL H 10^3/uL (1.00-3.00) Absolute Monocytes 0.69 10^3/uL 10^3/uL (0.30-0.80) Absolute Eosinophils 4.97 10^3/uL H 10^3/uL (0.03-0.40) RBC/WBC/PLT Morphology NORMAL (NORMAL) Platelet Estimate ADEQUATE (ADEQ) Smear Review By Pending Sodium 138 mEq/L mEq/L (134-144) Potassium 3.9 mEq/L mEq/L (3.5-5.2) Chloride 107 mEq/L mEq/L (97-110) Carbon Dioxide 20 mEq/l L mEq/l (22-31) Anion Gap 11 mEq/L mEq/L (8-16) BUN 12 mg/dL mg/dL (7-23) Creatinine 0.5 mg/dL L mg/dL (0.6-1.0) Estimated GFR > 60 Glucose 97 mg/dL mg/dL (70-100) Calcium 8.6 mg/dL mg/dL (8.5-10.4) Total Bilirubin 0.5 mg/dL mg/dL (0.1-1.4) Conjugated Bilirubin 0.3 mg/dL mg/dL (0.0-0.5) Unconjugated Bilirubin 0.2 mg/dL mg/dL (0.0-1.1) AST 75 IU/L H IU/L (14-46) ALT 139 IU/L H IU/L (9-52) Alkaline Phosphatase 126 IU/L IU/L (38-126) Total Protein 6.3 g/dL g/dL (6.3-8.2) Albumin 3.6 g/dL g/dL (3.5-5.0) Lipase 51 IU/L IU/L (23-300) Urine Color BRITNEY Urine Appearance HAZY Urine pH 5.0 (5.0-7.5) Ur Specific Pelham 1.029 (1.002-1.030) Urine Protein 1+ H (NEGATIVE) Urine Ketones 1+ H (NEGATIVE) Urine Blood NEGATIVE (NEGATIVE) Urine Nitrate NEGATIVE (NEGATIVE) Urine Bilirubin NEGATIVE (NEGATIVE) Urine Urobilinogen NEGATIVE EU EU (0.2-1.0) Ur Leukocyte Esterase NEGATIVE (NEGATIVE) Urine RBC 3-5 /hpf H /hpf (0-3) Urine WBC 1-3 /hpf /hpf (0-3) Ur Epithelial Cells TRACE /lpf /lpf (NONE-1+) Urine Bacteria TRACE /hpf H /hpf (NONE SEEN) Urine Mucus 4+ /lpf H /lpf (NONE-1+) Urine Glucose NEGATIVE (NEGATIVE) Medications Given: Hydromorphone HCl (Dilaudid) 0.5 mg IVP Q2HRS PRN PRN Reason: Pain, Severe Unable to Take PO Last Admin: 11/15/16 11:00 Dose: 0.5 mg Discontinued Medications Ondansetron HCl (Zofran) 4 mg IVP EDNOW ONE Stop: 11/15/16 08:22 Last Admin: 11/15/16 08:29 Dose: 4 mg General Initial Vital Signs: Initial Vital Signs Temperature (C) 36.6 C 11/15/16 07:06 Heart Rate 116 H 11/15/16 07:06 Respiratory Rate 18 11/15/16 07:06 Blood Pressure 143/88 H 11/15/16 07:06 O2 Sat (%) 93 10/04/17 07:06 O2 Delivery Mode Nasal Cannula O2 (L/minute) 1 Allergies/Adverse Reactions: gluten Allergy (Verified 11/15/16 07:06) Home Medications: Medication Instructions Recorded Hydrocodone/Acetaminophen [Clementon 1 - 2 tab PO Q4H PRN 10/26/16 5/325 (*)] Albuterol [Proventil Inhaler HFA 1 - 2 puffs IH Q4H #1 mdi 10/28/16 (*)] Acetaminophen [Tylenol ES 500 mg 500 mg PO DAILY PRN 11/15/16 (*)] Ascorbic Acid [Vitamin C 500 mg 1,000 mg PO BID 11/15/16 (*)] Cetirizine [ZyrTEC 10 mg (*)] 10 mg PO DAILY@11/15/16 Dicyclomine [Bentyl 20 MG (*)] 20 mg PO DAILY PRN 11/15/16 Famotidine [Pepcid 20 MG (*)] 20 mg PO DAILY@16 11/15/16 Furosemide [Lasix 20 MG (*)] 20 mg PO DAILY@11/15/16 Levothyroxine [Synthroid 150 mcg 150 mcg PO DAILY@11/15/16 (*)] Montelukast Sodium [Singulair 10 10 mg PO DAILY@11/15/16 mg (*)] Naproxen Sodium [Aleve 220 MG (*)] 220 mg PO DAILY@11/15/16 Naproxen Sodium [Aleve 220 MG (*)] 440 mg PO DAILY@11/15/16 Vitamin B Complex [B Complex] 1 each PO DAILY 11/15/16 Departure - Departure Disposition: [facility] Inpatient Acute Clinical Impression: Bowel obstruction Qualifiers: Intestinal obstruction type: unspecified Intestinal obstruction extent: unspecified extent Qualified Code(s): K56.609 - Unspecified intestinal obstruction, unspecified as to partial versus complete obstruction Condition: Fair Referrals: Gwendolyn Ojeda MD [Primary Care Provider] - As per Instructions Report Scribed for: Colton Norris Report Scribed by: Rosie Workman Date of Report: 11/15/16 Time of Report: 07:
[2016-11-15 07:31] LABS: ADD DIFF? YES; ADD MORPH? NO; ADD SCAN? NO; ATYPICAL LYMPHOCYTE FLAG 0 (0-99); FRAGMENT RBC FLAG 0 (0-99); HEMATOCRIT 42.4 % (38.0-47.0); HEMOGLOBIN 14.5 g/dL (12.6-16.3); LEFT SHIFT FLG 0 (0-99); LIPEMIA HEMOLYSIS FLAG 90 (0-99); MEAN CELL HEMOGLOBIN 29.3 pg (27.9-34.1); MEAN CELL HEMOGLOBIN CONCENTR. 34.2 g/dL (32.4-36.7); MEAN CELL VOLUME 85.7 fL (81.5-99.8); MEAN PLATELET VOLUME 10.9 fL (8.7-11.7); PLATELET CLUMPS FLAG 10 (0-99); PLATELET COUNT 382 10^3/uL (150-400); RED BLOOD CELL COUNT 4.95 10^6/uL (4.18-5.33); RED CELL DISTRIBUTION WIDTH 13.5 % (11.5-15.2)
[2016-11-15 07:52] LABS: ALANINE AMINOTRANSFERASE 139 IU/L (9-52); ALBUMIN 3.6 g/dL (3.5-5.0); ALKALINE PHOSPHATASE 126 IU/L (38-126); ANION GAP 11 mEq/L (8-16); ASPARTATE AMINOTRANSFERASE 75 IU/L (14-46); BILIRUBIN,TOTAL 0.5 mg/dL (0.1-1.4); BILIRUBIN-CONJUGATED 0.3 mg/dL (0.0-0.5); BILIRUBIN-UNCONJUGATED 0.2 mg/dL (0.0-1.1); CALCIUM 8.6 mg/dL (8.5-10.4); CARBON DIOXIDE 20 mEq/l (22-31); CHLORIDE 107 mEq/L (97-110); CREATININE 0.5 mg/dL (0.6-1.0); GLOMERULAR FILTRATION RATE > 60; GLUCOSE 97 mg/dL (70-100); POTASSIUM 3.9 mEq/L (3.5-5.2); SODIUM 138 mEq/L (134-144); TOTAL PROTEIN 6.3 g/dL (6.3-8.2)
[2016-11-15 07:59] LABS: COLOR AMBER; LEUKOCYTE ESTERASE,URINE NEGATIVE (NEGATIVE); NITRITE,URINE NEGATIVE (NEGATIVE)
[2016-11-15] MEDS ORDERED: ONDANSETRON 4 MG/2 ML VIAL IVP ONE (08:21)
[2016-11-15 08:23] LABS: PLATELET ESTIMATE ADEQUATE (ADEQ)
[2016-11-15 08:28] LABS: BACTERIA TRACE /hpf (NONE SEEN); MUCUS 4+ /lpf (NONE-1+)
[2016-11-15] MEDS: HYDROmorphONE/DILAUDID 1 MG/ML INJ IVP PRN ×6 (08:29→22:47)
[2016-11-15] MEDS ORDERED: IOPAMIDOL (ISOVUE-300) 100 ML BTL ONE (08:43)
--- NOTE | 2016-11-15 11:39 | GCON ---
[f rep st] CONSULTATION REFERRING PHYSICIAN: Colton Norris MD REASON FOR CONSULTATION: Lower abdominal pain. HISTORY OF PRESENT ILLNESS: The patient is a 41-year-old woman, who was previously healthy until Sep. She was admitted to [facility] with a small bowel obstruction. She underwent a d iagnostic laparoscopy by Dr. Villatoro, who ran her small bowel, but no transition point obstruction or adh esions were noted. She was then discharged. She was readmitted and had an EGD and colonoscopy and, per patient report, these were normal. She was admitted to [facility] on October 26, 2016, and was noted to have a rising eosinophil count. She also had bilateral pleural effusions. S he underwent thoracentesis as well as a bone marrow biopsy by Dr. Joiner. She has been working somewh at from home, taking Aleve during the day and Vicodin at night; however, yesterday at 2 a.m., her abd ominal pain became so severe that she presented to the emergency room. A CT scan was obtained which showed small bowel obstruction with smooth transition in the left abdomen with bowel thickening sugge stive of inflammatory infectious enteritis. She also has thickening of the distal stomach and proxim al duodenum. She has a small amount of ascites. She has small pleural effusions. She reports that she has cyclical diarrhea and will have pure water multiple times a day for about 5 days, and then th is will discontinue. She is in that cycle right now where she is having water. She has severe decre ased p.o. intake and feels weak. Her pain is normally more in the epigastric region, but today is lo cated more in the lower pelvis bilaterally. PAST MEDICAL HISTORY: Hypothyroid, recent history of eosinophilia. PAST SURGICAL HISTORY: Thyroidectomy, which was noncancerous; bone marrow biopsy, which again showed mature eosinophils, no evidence of leukemia or lymphoma; recent diagnostic laparoscopy which was neg ative. SOCIAL HISTORY: She is . She works from home. She denies tobacco use. FAMILY HISTORY: No family history of GI disease. Coronary artery disease. REVIEW OF SYSTEMS: A 10-point review of systems otherwise negative. ALLERGIES: Gluten. PHYSICAL EXAMINATION: VITAL SIGNS: 37, 75, 118/81, 16, 96% on 1 L. GENERAL: Pleasant, sitting up in bed. at bedside. Appears to be in pain but not toxic. HEENT: Normocephalic. No gross hearing deficits. Mucous membranes moist. Pupils equal and round. No scleral icterus. LUNGS: Isrrael ar to auscultation bilaterally. No increased work of breathing. CARDIAC: Regular rate. ABDOMEN: Bowel sounds are present. She is slightly distended. She is very tender in her lower abdomen but no t as much in her upper abdomen. She has well-healed incisions consistent with her previous laparosco pic surgery. MUSCULOSKELETAL: Normal nails. NEURO: Grossly intact. PSYCH: Mood and affect joseluis l. RESULTS: I personally reviewed the results of her CT scan and can see dilated loops of bowel with a slowing transition point. Her white count is significant at 17.14. The differential shows that the eosinophils are high. This white count is down from her previous admissions. IMPRESSION AND PLAN: The patient is a 41-year-old woman with persistent abdominal pain, profuse diar silvia, and eosinophilia. She does not clinically have a bowel obstruction as she is passing flatus an d having diarrhea. She has also had a negative diagnostic laparoscopy within 4 weeks. I did discuss with her although the recent diagnostic laparoscopy was negative, I will continue to follow her in t he event that her abdominal symptoms change. It is possible she could need another one. At this kavitha e, I recommend she be admitted to the hospitalist as well as be evaluated by GI. I have also notifie d Dr. Joiner that she is an inpatient again. At this time, I would keep her n.p.o., and I will contin ue to follow along. /[id number]/MODL
[2016-11-15] MEDS ORDERED: DICYCLOMINE 20 MG TAB PO PRN (13:27)
[2016-11-15] MEDS ORDERED: ALBUTEROL 60 PUFFS/8 GM MDI IH SCH (13:30)
[2016-11-15] MEDS ORDERED: ACETAMINOPHEN 325 MG TAB PO PRN (13:38)
[2016-11-15] MEDS ORDERED: oxyCODONE IR 5 MG TAB PO PRN (13:38)
[2016-11-15] MEDS ORDERED: HYDROmorphONE/DILAUDID 1 MG/ML INJ IVP PRN (13:38)
[2016-11-15] MEDS ORDERED: ALBUTEROL 200 PUFFS/18 GM MDI IH SCH (13:45)
[2016-11-15] MEDS ORDERED: ALBUTEROL 200 PUFFS/18 GM MDI IH PRN (13:56)
[2016-11-15] MEDS: ONDANSETRON 4 MG/2 ML VIAL IVP PRN ×2 (14:15→20:42)
[2016-11-15] MEDS: NAPROXEN SODIUM 220 MG TAB PO SCH (14:16)
--- NOTE | 2016-11-15 15:15 | GHP ---
[f rep st] HISTORY AND PHYSICAL DATE OF ADMISSION: 11/15/2016 CHIEF COMPLAINT: Abdominal pain, diarrhea. HISTORY: The patient is a 41-year-old female, who has been ill for about 6 weeks. Initially, she presented with a small-bowel obstruction to [facility], and underwent an exploratory laparotomy that was negative. She also underwent EGD and colonoscopy, with biopsies that were negative. At that point , she reports her CAT scan was only showing a very mild small area of thickening in her bowel, and the biopsy was not done at that specific area. Since that time, she has progressed and gotten worse. She has had 1 hospitalization previously at [facility], when she presented with shortness of breath and was found to have a pleural effusion. She underwent thoracentesis, and the pleural effusion was found to have 91% eosinophils. She was also found to have ascites and a profound peripheral eosinophilia. Hematology was consulted, and she underwent bone marrow biopsy. She was feeling better after being started on antihistamines, with a plan to follow up bone marrow biopsy results as an outpatient with Dr. Joiner. She did follow up with Dr. Joiner, and the bone marrow biopsy showed a reactive eosinophilia, and no malignancy in the bone marrow, so bone marrow did not feel to represent the primary problem. She has also been worked up for autoimmune and parasite etiologies in the past. Since discharging from the hospital 2 weeks ago, she had about 10 days that she was doing well, and then she started to feel worse again. She has had profuse diarrhea now for 6 days, with diffuse increasing abdominal pain. She will eat a very small meal and subsequently get massive GI distention, and takes 8 to 9 hours to go down. She has been able to eat very little. She has had no nausea or vomiting, but has had increasing burping. There has been no blood in her stool. There has been no fever, but she has been diaphoretic. There has been no weight loss. She continues to have shortness of breath and is producing green mucus and using an inhaler. She recently took a course of azithromycin, which did improve it a little bit. Inhaler use is only new in the last 6 weeks , and she does not have a history of asthma. PAST MEDICAL HISTORY: 1. Eosinophilia of unclear etiology. 2. Eosinophilic pleural effusion, status post thoracentesis. 3. Ascites. 4. Increased LFTs. 5. Recurrent small-bowel obstructions. 6. Pulmonary embolus and DVT 17 years ago. 7. GERD. 8. Hypothyroidism, status post thyroidectomy. MEDICATIONS: Please see computer record for full detailed list. ALLERGIES: Gluten. SOCIAL HISTORY: No smoking. No alcohol. She lives with her . She was in the [employer] in her 20s, spending her time in [facility]. This was within the area that may have been affected by [place], and she is a vegetarian and is concerned about possible radiation exposure through the food she ate during that time. She traveled to [facility] 5 years ago. Her only recent international travel has been frequent visits to [facility] in [place]. REVIEW OF SYSTEMS: Complete review of systems obtained. Review of systems is negative on constitutional, HEENT, GI, pulmonary, cardiovascular, , hematology , skin, muscular, endocrine, psych, except for positives as in HPI. FAMILY HISTORY: Positive for coronary artery disease. PHYSICAL EXAMINATION: GENERAL: Well-developed, well-nourished female, in no acute distress. VITAL SIGNS: Temperature is 36.7, pulse 116, blood pressure 123/79, saturating 93% on room air. HEENT: Normal conjunctivae. Pupils react to light. ENT: Normal ears, nose. Hearing intact. Normal teeth. Oropharynx moist. NECK: Trachea midline. No thyromegaly. CHEST: Normal respiratory effort. LUNGS: Clear to auscultation bilaterally. CARDIOVASCULAR: Regular rhythm. No murmur. No extremity edema. ABDOMEN: Soft, very tender to palpation. Distended. No hepatosplenomegaly. SKIN: Warm, dry, intact. No rash. MUSCULOSKELETAL: No cyanosis or clubbing. Strength 5/5, upper and lower extremities. NEURO: Cranial nerves intact. Normal sensation to light touch. PSYCHIATRIC: Alert and oriented x3. Normal affect. Normal judgment. Normal memory. LABS: White count 17.14 with 29% eosinophils, hematocrit 42.4, platelets 382. Sodium 138, potassium 3.9, chloride 107, bicarb 20, BUN 12, creatinine 0.5, glucose 97. AST is 75, ALT is 139. IMAGING STUDIES: CT scan of the abdomen and pelvis shows a small-bowel obstruction, with a transition in the left abdomen due to small-bowel thickening , inflammation versus infection. Her stomach and duodenum are also thickened. There is a small amount of ascites. ASSESSMENT AND PLAN: 1. Partial small-bowel obstruction secondary to inflammation in the distal small bowel. I think this is clearly tied into her peripheral eosinophilia. She also has similar thickened changes on her CAT scan in her esophagus, stomach , and duodenum. She did have a previous EGD with biopsies that were negative. However, she was not having CT scan changes to the degree she is now, and a small area of thickening seen at that time was not the area that they biopsied. I suspect the next step would be to repeat her EGD and repeat biopsies of these abnormal areas. I have spoken with Dr. Ross, and will keep her n.p.o. after midnight for possible EGD in the morning. The area of thickening in her distal small bowel is approaching the terminal ilium, and could also consider colonoscopy to look at that area, as well, if answers are still unrevealing. 2. Profound peripheral eosinophilia of unclear etiology. It appears the gastrointestinal tract is most affected. I have spoken with Infectious Disease. She previously had an infectious disease workup at [facility] that was reportedly negative for parasites. Infectious Disease recommends repeating a coccidioidomycosis with strongyloides, but this degree of eosinophilia is much more pronounced than is ever seen with a parasite infection. 3. Autoimmune disease. Autoimmune disease is also being considered, although I think less likely. She previously here had a mildly positive JOSSELYN and a positive p-ANCA of unclear significance. Bone marrow biopsy was negative for malignancy, and is felt by Hematology not to be the primary problem. Could consider a consultation Immunology. Empiric steroids could be considered, but would not initiate until infection is ruled out. 4. Eosinophilic pleural effusion. I suspect this is tracked up from her ascites, as she shows no other signs of polyp of pulmonary disease. She had a CT angiogram of the chest during her last hospitalization, that was negative for PE, and also did not reveal any pulmonary infiltration. 5. Systemic inflammatory response syndrome. I do not think this is sepsis. I suspect whole body inflammation due to the above processes. 6. Increased liver function tests. Liver biopsy has also been considered as a possible next step. I would think an EGD biopsy might be easier and more revealing. 7. Code status is full. 8. Admission status. Will admit to inpatient, as she is medically complex, is clearly failing outpatient workup with recurrent hospitalizations and re- admissions. Need to get diagnosis for her prior to transition to outpatient care. 9. DVT prophylaxis. She is high risk. Given her history of DVT and pulmonary embolus. Will initiate Lovenox after procedure complete. /[id number]/MODL MTDD
[2016-11-15] MEDS: FAMOTIDINE 20 MG TAB PO SCH (16:54)
--- NOTE | 2016-11-15 16:54 | PDCONSULT ---
Setter Up Note: 1.) Eosinophilia without evidence for a primary Hematologic/Myeloproliferative Disorder- by work up of Dr. Noel Joiner in our group ([facility] office note of 11/03/16) with Eosinophil count d=trending downward despite increasing ABD/GI symptoms. [WBC was 32,000 several weeks ago, and today 17,000. Total Eosinophil count was 20,000 previously and now 5,000 today.] Onset of Eosinophilia not known, but GI sx started acutely on 09/30/16. Work up has included Bone marrow exam, pleural fluid cytology, RONDA assay (neg.), C-KIT assay (neg.) She has not received steroids, but was started on antihistamines and leukotriene inhibitors. No known hematologic process by PMHx. 2.) Severe abdominal pain, as related in details of other provider notes in this chart. Reports from [facility] : CT angiogram: No PE, mild pleural eff. mild ascites Jejunum Bx: no pathologic dx, no inflammation CT abd: Jejunal wall thickening and dilation, with gradual transition to normal bowel CT enterography severe wall thickening of Jejunum and edema of mesenteric fat. No transition point. Moderate ascites Echo: EF 75 % Had Explor. Lap without Path. diagnosis. 3.) Remote hx. of PE with neg. Hypercoag. W/U 17 years ago.4,) 4.) S/P Thyroidectomy , now hypothyroidism 5.) Gluten sensitivity, long standing, but not Celiac Disease (+). Sx: Has had progressive abd. pain over past 6 weeks, with [facility] W/ U and Explor Lap. Was waiting to see Dr. Reyes once MR enterography was done. She has had worsening abd. pain, manifest as intestinal spasm, with increased intensity past 24 hours, despite Hydrocodone. She notes diarrhea and orange colored fat globules recently. Not diet related. No new/ different medication sources. No other known food intolerance. Night sweats and hot flashes recently, but no fever or lymphadenopathy recently. O: Uncomfortable young-middle aged WF in NAD. at bedside VSS, Afebrile, HEENT: anicteric, no facial assymetry, no oral lesions. Neck- supple, no mass or LN enlargement Chest- clear CVS- RSR, no extra HS ABD-flat, BS diminished, but +,no HSM or ascites or mass. Tender to light palpation in lower 1/2 of abdomen. EXT- no edema,warm, well perfused, skin intact/unremarkable Labs as noted: WBC down to 17,000 with < 50 % Eos. No immature WBC series. Others noted/listed in recent notes. Imaging: SBO without transition point. Multiple airfluid filled loops throughout abd. A/P: 1.) Eosinophilia with work up not showing this to be a primary Hematologic/Myeloproliferative Process. WBC and Absolute Eosinophil count has come down markedly with increased abd. pain sx. Work up as outpt at our [place] facility (Dr. Noel Joiner). 2.) Jejunal inflammatory mural findings, with neg prior EGD+ biopsies + explor. Lap at [facility] per chart review. ? if this could be Eosinophilic Gastroenteritis . Agree with GI consult with GI of the [facility]. 3.) Hypothyroidism, S/P Thyroidectomy with neg. Pathology for Thyroid malignancy. Now on thryroid replacement 4.) Gluten sensitivity, long standing. 5.) Abdominal pain presumed to be sx. from SBO process. Doubt Porphyria or PNH. Will follow. Perhaps after GI eval with or without EGD and biopsy, she may be on a trial of parenteral steroids. Above reviewed and D/W patient with at the bedside.
[2016-11-15] MEDS: KETOROLAC 30 MG/1 ML SDV IVP PRN (18:28)
[2016-11-15] MEDS: ASCORBIC ACID 500 MG TAB PO SCH (20:43)
[2016-11-15] MEDS: PROMETHAZINE HCL 25 MG/ML INJ IVP PRN (22:45)
[2016-11-15] MEDS: NS 1,000 ML IV SCH (22:48)
[2016-11-16] MEDS: HYDROmorphONE/DILAUDID 1 MG/ML INJ IVP PRN ×6 (03:37→16:43)
[2016-11-16] MEDS: LEVOTHYROXINE 150 MCG TAB PO SCH (03:38)
[2016-11-16 04:47] LABS: ADD DIFF? YES; ADD MORPH? NO; ADD SCAN? NO; ATYPICAL LYMPHOCYTE FLAG 10 (0-99); FRAGMENT RBC FLAG 0 (0-99); HEMATOCRIT 45.2 % (38.0-47.0); LEFT SHIFT FLG 0 (0-99); LIPEMIA HEMOLYSIS FLAG 80 (0-99); MEAN CELL HEMOGLOBIN 29.5 pg (27.9-34.1); MEAN CELL HEMOGLOBIN CONCENTR. 33.2 g/dL (32.4-36.7); PLATELET CLUMPS FLAG 0 (0-99); PLATELET COUNT 421 10^3/uL (150-400); RED BLOOD CELL COUNT 5.08 10^6/uL (4.18-5.33); RED CELL DISTRIBUTION WIDTH 13.8 % (11.5-15.2)
[2016-11-16 04:58] LABS: INR 1.19 (0.83-1.16); PROTIME(PATIENT) 15.1 SEC (12.0-15.0)
[2016-11-16 05:04] LABS: ALANINE AMINOTRANSFERASE 121 IU/L (9-52); ALBUMIN 3.2 g/dL (3.5-5.0); ALKALINE PHOSPHATASE 143 IU/L (38-126); ANION GAP 12 mEq/L (8-16); ASPARTATE AMINOTRANSFERASE 69 IU/L (14-46); BILIRUBIN,TOTAL 0.6 mg/dL (0.1-1.4); BILIRUBIN-CONJUGATED 0.2 mg/dL (0.0-0.5); BILIRUBIN-UNCONJUGATED 0.4 mg/dL (0.0-1.1); C-REACTIVE PROTEIN 45.6 mg/L (<10.0); CALCIUM 8.3 mg/dL (8.5-10.4); CARBON DIOXIDE 19 mEq/l (22-31); CHLORIDE 106 mEq/L (97-110); CREATININE 0.6 mg/dL (0.6-1.0); GLOMERULAR FILTRATION RATE > 60; GLUCOSE 65 mg/dL (70-100); POTASSIUM 3.8 mEq/L (3.5-5.2); SODIUM 137 mEq/L (134-144); TOTAL PROTEIN 5.9 g/dL (6.3-8.2)
--- NOTE | 2016-11-16 05:12 | SOAPPROG ---
ORTIZ Progress Note Assessment/Plan: Assessment: Plan: 11/16/16 05:11 GI note Chart reviewed. Eosinophilic gastroenteritis? Will plan on EGD with biopsies today. Keep NPO. Objective: Vital Signs Temp Pulse Resp BP Pulse Ox 37.7 C 109 H 16 117/67 90 L 11/16/16 04:00 11/16/16 04:00 11/16/16 04:00 11/16/16 04:00 11/16/16 04:00 Laboratory Results 11/16/16 04:22 11/16/16 04:22 11/14/16 11/15/16 11/16/16 05:59 05:59 05:59 Intake Total 0 Balance 0 PT 15.1 SEC (12.0-15.0) H 11/16/16 04:22 INR 1.19 (0.83-1.16) H 11/16/16 04:22 ICD10 Worksheet Patient Problems: Problems Problem Status Onset Pleural effusion Acute Bowel obstruction Acute
[2016-11-16 05:21] LABS: PLATELET ESTIMATE ADEQUATE (ADEQ)
[2016-11-16 05:40] LABS: SEDIMENTATION RATE 1 MM/HR (0-20)
[2016-11-16] MEDS: NS 1,000 ML IV SCH ×3 (06:35→23:50)
[2016-11-16] MEDS ORDERED: ENOXAPARIN 40 MG/0.4 ML SYR SC SCH (09:00)
[2016-11-16] MEDS: ONDANSETRON 4 MG/2 ML VIAL IVP PRN (09:27)
[2016-11-16] MEDS: CETIRIZINE 10 MG TAB PO SCH (09:27)
[2016-11-16] MEDS: MONTELUKAST SODIUM 10 MG TAB PO SCH (09:27)
[2016-11-16] MEDS: NAPROXEN SODIUM 220 MG TAB PO SCH ×2 (09:29→14:40)
[2016-11-16] MEDS: ASCORBIC ACID 500 MG TAB PO SCH ×2 (09:30→21:14)
[2016-11-16] MEDS: KETOROLAC 30 MG/1 ML SDV IVP PRN ×3 (10:50→23:47)
--- NOTE | 2016-11-16 12:29 | SOAPPROG ---
SOAP Progress Note Assessment/Plan: Assessment: 1.) Eosinophilia with workup indicating this is not a primary hematologic/ myeloproliferative process. Likely as Secondary process. 2.) Gastrointestinal disorder? Eosinophilic Gastroenteritis? Appreciate GI work up with Endoscopy later today. Await findings/biopsy reports. May have sufficient information for trial of oral prednisone. 3.) Pain management issues- continue current orders while NPO and until after procedure. Plan: See above discussion. 11/16/16 12:29 Subjective: Slept better last night with IV analgesics and anxiolytics. Still with spasms of GI related pain. Hungry from 48 hours of NPO. No emesis or stool. Objective: Looks tired, but having less pain, with IV dilaudid In NAD VSS, afebrile as noted here. HEENT- anicteric, no facial assymetry, no oral lesions. Neck- supple, Chest- clear CVS- RSR, no extra HS, ABD- soft, BS + but diminished, tender in mid abdomen EXT- no edema, no petechiae or ecchymoses. Labs as noted here: WBC 17.5, wth 37 % Eosinophils CO2 19. BUN/Cr 12/0.6 Vital Signs Temp Pulse Resp BP Pulse Ox 37.0 C 106 H 16 107/69 88 L 11/16/16 11:28 11/16/16 11:28 11/16/16 11:28 11/16/16 11:28 11/16/16 11:28 Laboratory Results 11/16/16 04:22 11/16/16 04:22 11/15/16 11/16/16 11/17/16 05:59 05:59 05:59 Intake Total 0 Balance 0 PT 15.1 SEC (12.0-15.0) H 11/16/16 04:22 INR 1.19 (0.83-1.16) H 11/16/16 04:22 ICD10 Worksheet Patient Problems: Problems Problem Status Onset Bowel obstruction Acute Pleural effusion Acute
--- NOTE | 2016-11-16 13:07 | PDMN ---
Medical Necessity Medical necessity: Patient meets INPT criteria per [facility] M-210 Intestinal Obstruction (partial SBO d/t inflammation; hx of profuse diarrhea x 6 days; increasing abd pain; increased LFT, leukocytosis; hx exlap s/p SBO, eosinophilia ; NPO/IV hydration/bowel rest; anticipated LOS > 2 midnights).
[2016-11-16] MEDS: FUROSEMIDE 20 MG TAB PO SCH (13:54)
--- NOTE | 2016-11-16 15:26 | PDANEPAE ---
ANE Past Medical History - Cardiovascular History Hx Hypertension: No Hx Arrhythmias: No Hx Chest Pain: No Hx Coronary Artery / Peripheral Vascular Disease: No Hx CHF / Valvular Disease: No Hx Palpitations: No - Pulmonary History Hx COPD: No Hx Asthma/Reactive Airway Disease: No Hx Oxygen in Use at Home: No Hx Sleep Apnea: No Sleep Apnea Screening Result - Last Documented: Negative Pulmonary History Comment: R pleural effusion - Endocrine History Hx Diabetes: No Hypothyroid: No Hyperthyroid: No Obesity: no - Chronic Pain History Chronic Pain: No ANE Review of Systems Review of Systems: - Exercise capacity METS (RN): 5 METS - Systems Hematologic/Lymphatic: Reports: other (H/O RUE DVT and PE) ANE Patient History - Allergies Allergies/Adverse Reactions: gluten Allergy (Verified 11/15/16 07:06) - Home Medications Home Medications: Hydrocodone/Acetaminophen [[place] 5/325 (*)] 1 - 2 tab PO Q4H PRN 10/26/16 [Last Taken 11/15/16 06:00 2 tabs] Acetaminophen [Tylenol ES 500 mg (*)] 500 mg PO DAILY PRN 11/15/16 [Last Taken 1 Week Ago ~11/08/16] Ascorbic Acid [Vitamin C 500 mg (*)] 1,000 mg PO BID 11/15/16 [Last Taken ] Cetirizine [ZyrTEC 10 mg (*)] 10 mg PO DAILY@08 11/15/16 [Last Taken 11/14/16] Dicyclomine [Bentyl 20 MG (*)] 20 mg PO DAILY PRN 11/15/16 [Last Taken 11/14/16] Famotidine [Pepcid 20 MG (*)] 20 mg PO DAILY@16 11/15/16 [Last Taken 11/14/16] Furosemide [Lasix 20 MG (*)] 20 mg PO DAILY@12 11/15/16 [Last Taken 11/14/16] Levothyroxine [Synthroid 150 mcg (*)] 150 mcg PO DAILY@11/15/16 [Last Taken 11/15/16] Montelukast Sodium [Singulair 10 mg (*)] 10 mg PO DAILY@11/15/16 [Last Taken 11/14/16] Naproxen Sodium [Aleve 220 MG (*)] 220 mg PO DAILY@14 11/15/16 [Last Taken 11/14] Naproxen Sodium [Aleve 220 MG (*)] 440 mg PO DAILY@08 11/15/16 [Last Taken 11/14] Vitamin B Complex [B Complex] 1 each PO DAILY 11/15/16 [Last Taken 11/14/16] - NPO status NPO Since - Liquids (Date): 11/16/16 NPO Since - Liquids (Time): 00:00 NPO Since - Solids (Date): 11/16/16 NPO Since - Solids (Time): 00:00 - Smoking Hx Smoking Status: Never smoked - Alcohol Use Alcohol Use: Rarely - Family Anes Hx Family Anes Hx: neg - N/A ANE Labs/Vital Signs - Labs Result Diagrams: 11/16/16 04:22 11/16/16 04:22 - Vital Signs Blood Pressure: 114/67 Heart Rate: 106 Respiratory Rate: 16 O2 Sat (%): 90 Height: 172.72 cm Weight: 85.7 kg ANE Physical Exam - Airway Neck exam: FROM Mallampati Score: Class 2 Mouth exam: normal dental/mouth exam - ASA Status ASA Status: II ANE Anesthesia Plan Anesthesia Plan: MAC Total IV Anesthesia: Yes
[2016-11-16] MEDS ORDERED: PROPOFOL/EMULSION 500 MG/50 ML BOTTLE IV ONE (15:33)
[2016-11-16] MEDS ORDERED: LIDOCAINE 2% 5 ML SDV ONE ×2 (15:34)
[2016-11-16] MEDS ORDERED: ONDANSETRON 4 MG/2 ML VIAL IVP PRN (16:12)
[2016-11-16] MEDS ORDERED: HYDROCODONE/APAP 5/325 TAB PO PRN (16:12)
[2016-11-16] MEDS ORDERED: LR 500 ML IV PRN (16:12)
[2016-11-16] MEDS ORDERED: ACETAMINOPHEN 500 MG TAB PO PRN (16:12)
[2016-11-16] MEDS ORDERED: NALOXONE HCL 0.4 MG/ML INJ IVP PRN (16:12)
--- NOTE | 2016-11-16 16:13 | POSTANESTH ---
Post Anesthetic Evaluation Cardiovascular Status: Similar to Pre-Op Cond Respiratory Status: Normal, Stable Level of Consciousness/Mental Status: Can Participate in Eval Pain Control: Adequate, Prn Tx Ordered Nausea/Vomiting Control: Adequate, Prn Tx Ordered Complications Possibly Related to Anesthesia: None Noted
[2016-11-16] MEDS ORDERED: HYDROmorphONE/DILAUDID 1 MG/ML INJ ONE (16:32)
--- NOTE | 2016-11-16 17:12 | SOAPPROG ---
SOAP Progress Note Assessment/Plan: Assessment: HD # 2 dilated small bowel, diarrhea and abdominal pain EGD today with biopsies Will follow along Viewed photos from previous diagnostic laparoscopy - no obstruction noted. Await path results from biopsy today S: Had upper abdominal pain last night but now back in pelvis. relatively comfortable as long as on pain meds O: Plan: 11/16/16 17:06 Objective: Vital Signs Temp Pulse Resp BP Pulse Ox 37 C 106 H 16 106/75 96 11/16/16 16:04 11/16/16 15:26 11/16/16 16:55 11/16/16 16:46 11/16/16 16:55 Laboratory Results 11/16/16 04:22 11/16/16 04:22 11/15/16 11/16/16 11/17/16 05:59 05:59 05:59 Intake Total 0 Balance 0 PT 15.1 SEC (12.0-15.0) H 11/16/16 04:22 INR 1.19 (0.83-1.16) H 11/16/16 04:22 Physical Exam - Physical Exam General Appearance: WD/WN, alert, no apparent distress EENT: PERRL/EOMI, normal ENT inspection, No scleral icterus (R), No scleral icterus (L) Respiratory: No respiratory distress Cardiac/Chest: regular rate, rhythm Abdomen: soft, distended, other (mild tenderness to palpation) Skin: normal color, warm/dry Neuro/Psych: no motor/sensory deficits, alert ICD10 Worksheet Patient Problems: Problems Problem Status Onset Bowel obstruction Acute Pleural effusion Acute
--- NOTE | 2016-11-16 17:14 | HOSPPROG ---
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 -EGD with biopsies today -empiric steroids per GI * SBO - infiltration of bowel with eosinophils -anticipate improvement with steroids -advance diet once obstruction improved * Eosinophilic pleural effusion -suspect tracking from ascites * SIRS - no evidence for sepsis -elevated WBC all eosinophils * Increased LFT -watch for resolution on steroids Subjective: Lots of pain post EGD - taking increased IV dilaudid in PACU Objective: Vital Signs Temp Pulse Resp BP Pulse Ox 37 C 106 H 16 106/75 96 11/16/16 16:04 11/16/16 15:26 11/16/16 16:55 11/16/16 16:46 11/16/16 16:55 Laboratory Results 11/16/16 04:22 11/16/16 04:22 11/15/16 11/16/16 11/17/16 05:59 05:59 05:59 Intake Total 0 Balance 0 PT 15.1 SEC (12.0-15.0) H 11/16/16 04:22 INR 1.19 (0.83-1.16) H 11/16/16 04:22 - Physical Exam Constitutional: no apparent distress, appears nourished, not in pain Cardiovascular: regular rate and rhythym, no murmur, rub, or gallop Respiratory: no respiratory distress, no rales or rhonchi, clear to auscultation Gastrointestinal: tenderness, guarding, rebound, distension, No normoactive bowel sounds Skin: no rashes or abrasions, no fluctuance, no induration Neurologic: AAOx3, sensation intact bilaterally Psychiatric: interacting appropriately, not anxious, not encephalopathic, thought process linear ICD10 Worksheet Patient Problems: Problems Problem Status Onset Bowel obstruction Acute Pleural effusion Acute
[2016-11-16] MEDS: FAMOTIDINE 20 MG TAB PO SCH (17:49)
[2016-11-16] MEDS: predniSONE 20 MG TAB PO SCH (17:49)
[2016-11-16] MEDS: PROMETHAZINE HCL 25 MG/ML INJ IVP PRN (17:50)
[2016-11-16] MEDS: ERYTHROMYCIN 0.5% 1 GM OPHT.OINT RTEYE SCH (18:09)
--- NOTE | 2016-11-16 22:26 | GIREPORT ---
[facility] Surgical Services - Endoscopy Department Patient Name: Caitlin Stewart Procedure Date: 11/16/2016 8:28 AM Patient Type: Outpatient Attending / BETTIE Physician: Sonido Ross MD Procedure: Upper GI endoscopy Indications: Generalized abdominal pain, Abnormal CT of the GI tract Patient Profile: 41 year old female presents for evaluation of generalized abdominal thee n ,nausea, as well as abnormal imaging. On CT scan she was noted to have thickening in the stomach and small bowel. Providers: Sonido Ross MD Medicines: Monitored Anesthesia Care Complications: No immediate complications. Estimated blood loss: Minimal. Description of Procedure: After obtaining informed consent, the endoscope was passed under direct vision. Throughout the procedure, the patient's blood pressure, pulse, and oxygen saturations were monitored continuous ly. The Endoscope was introduced through the mouth, and advanced to the second part of duodenum. The upper GI endoscopy was accomplished without difficulty. The patient tolerated the procedure well . Findings: The examined esophagus was normal. Biopsies were taken with a cold forceps for histology. Diffuse moderately erythematous mucosa was found in the entire examined stomach. Biopsies were t aken with a cold forceps for histology. The examined duodenum was normal. Biopsies were taken with a cold forceps for histology. Estimated Blood Loss: Estimated blood loss was minimal. Post Op Diagnosis: - Normal esophagus. Biopsied. - Erythematous mucosa in the stomach. Biopsied. - Normal examined duodenum. Biopsied. - Etiology? Eosinophilic gastroenteritis versus other? Due to clinical picture, have high suspicion for eosinophilic esopahgitis. Will start o ral steroids. Await biopsy results (however, sometimes need full thickness biopsies for diagnosis) Recommendation: - Return patient to [facility] for ongoing care. - Await pathology results. - Clear liquid diet. - Prednisone 20mg po BID - Thank you for allowing me to participate in the care of your patient. Attending Participation: I personally performed the entire procedure. Sonido Ross MD Sonido Ross MD 11/16/2016 10:25:36 PM Number of Addenda: 0 Note Initiated On: 11/16/2016 8:28 AM [email or web address]
--- NOTE | 2016-11-16 23:28 | GCON ---
[f rep st] CONSULTATION DATE OF CONSULTATION: 11/16/2016 REFERRING PHYSICIAN: Christina Benedict MD REASON FOR CONSULTATION: Abnormal imaging/abdominal pain CHIEF COMPLAINT: Abdominal pain. HISTORY OF PRESENT ILLNESS: Caitlin is a 41-year-old female who presents to [facility] with complaints of abdominal pain. The patient was doing well until approximately 6 weeks ago when she started to develop a diffuse , intermittent abdominal pain. This pain was crampy to sharp and became more progressive in nature. She eventually went to an outside hospital and was found to have a small bowel obstruction. She eventually underwent exploratory laparotomy with no cause visualized. She also underwent upper endoscopy and colonoscopy, which according to her was negative. Since then, her symptoms have gotten progressively worse. She is complaining of a crampy, sharp pain throughout her abdomen. She also has complaints of significant bloating with abdominal distension. Her symptoms are exacerbated by oral intake. She also complains of nausea, as well as a hard time eating. She also complains of having diarrhea where she goes several times each day. She suddenly presented with shortness of breath and was found have a pleural effusion. A thoracentesis was performed and it was found to have a high eosinophilic count. She also started to develop ascites as well as significant eosinophilia seen on blood work. She had a workup with Hematology with Dr. Joiner and eventual bone marrow biopsy was performed with no cause found. She also had an ID consult in [place] with stool study showing no signs of parasites or other infections. She had her CT scan done during this admission which did reveal thickening in her stomach, small bowel, as well as colon. I am being asked by Dr. Benedict to evaluate Caitlin in consultation regarding her abdominal pain as well as abnormal imaging studies. PAST MEDICAL HISTORY: 1. Recurrent small bowel obstruction. 2. Pulmonary embolus and DVT 17 years ago with unknown cause. 3. Gastroesophageal reflux disease. 4. Hypothyroidism. SURGERIES: Thyroidectomy. ALLERGIES: Gluten. MEDICATIONS: Hydrocodone/acetaminophen, albuterol, acetaminophen, vitamin C, dicyclomine, Zyrtec, Pepcid, Lasix, levothyroxine, Singulair, naproxen, B12. SOCIAL HISTORY: Lives in [place]. Social alcohol. No significant cigarette use. FAMILY HISTORY: History of coronary artery disease. REVIEW OF SYSTEMS: A 12-point comprehensive Review of Systems obtained. Pertinent positives and negatives per HPI. PHYSICAL EXAM: VITALS: Temperature 36.7, pulse 82, blood pressure 122/72, respiratory rate 17. GENERAL: Awake, alert, oriented x3. No distress. HEENT : Anicteric sclerae. Moist mucosa. NECK: No JVD. CARDIOVASCULAR: Regular rate and rhythm. Positive S1, S2. No murmurs or gallops appreciated. LUNGS: Clear to auscultation bilateral. No wheezes, rales or rhonchi. ABDOMEN: Soft. Tender to palpation, especially in the upper abdomen. Distended. + bowel sounds. No guarding or rebound. EXTREMITIES: No clubbing, cyanosis, or edema. NEUROLOGIC: 2 through 12 grossly intact. PSYCH: Normal affect. MUSCULOSKELETAL: No joint effusions. LABORATORY DATA: Her blood work: WBC 17.5, hemoglobin 15, hematocrit 45.2. INR 1.19. AST 69, ALT 121, alk phos 143. C-reactive protein 45.6, albumin 3.2 , lipase 51. CT scan: Diffuse wall thickening of the distal stomach/pylorus. Also had thickening in the second portion of the duodenum extending to the terminal ilium. ASSESSMENT AND PLAN: 1. Abdominal pain- with change in bowel habits. Does have increased liver function tests. Does have peripheral eosinophilia as well as significant eosinophilia seen in thoracentesis as well as in ascitic fluid. Has had a significant workup with Hematology including bone marrow biopsy. Also had a prior workup by Infectious Disease. Etiology? Eosinophilic gastroenteritis versus other? Due to her symptomatology as well as the abnormal imaging, would recommend to proceed with upper endoscopy. Will recommend biopsies of the esophagus, stomach, and duodenum. The risks, benefits, and alternatives of the procedure were discussed in great detail with the patient. Risk of infection, bleeding, perforation, and sedation were discussed. All questions answered. Informed consent obtained. 2. Increased liver function tests- suspect systemic process. Will monitor. Thank you very much for this consultation. /[id number]/MODL MTDD
[2016-11-17] MEDS: HYDROmorphONE/DILAUDID 1 MG/ML INJ IVP PRN ×3 (00:04→09:12)
[2016-11-17] MEDS: NS 1,000 ML IV SCH (04:46)
[2016-11-17] MEDS: ERYTHROMYCIN 0.5% 1 GM OPHT.OINT RTEYE SCH (04:47)
[2016-11-17] MEDS: LEVOTHYROXINE 150 MCG TAB PO SCH (04:52)
[2016-11-17 05:16] LABS: ADD DIFF? YES; ADD MORPH? NO; ADD SCAN? NO; ATYPICAL LYMPHOCYTE FLAG 0 (0-99); FRAGMENT RBC FLAG 0 (0-99); HEMATOCRIT 36.5 % (38.0-47.0); HEMOGLOBIN 11.9 g/dL (12.6-16.3); LEFT SHIFT FLG 0 (0-99); LIPEMIA HEMOLYSIS FLAG 80 (0-99); MEAN CELL HEMOGLOBIN 29.3 pg (27.9-34.1); MEAN CELL HEMOGLOBIN CONCENTR. 32.6 g/dL (32.4-36.7); MEAN CELL VOLUME 89.9 fL (81.5-99.8); PLATELET CLUMPS FLAG 0 (0-99); PLATELET COUNT 343 10^3/uL (150-400); RED BLOOD CELL COUNT 4.06 10^6/uL (4.18-5.33); RED CELL DISTRIBUTION WIDTH 13.4 % (11.5-15.2)
[2016-11-17 05:38] LABS: ALANINE AMINOTRANSFERASE 95 IU/L (9-52); ALBUMIN 3.1 g/dL (3.5-5.0); ALKALINE PHOSPHATASE 113 IU/L (38-126); ANION GAP 14 mEq/L (8-16); ASPARTATE AMINOTRANSFERASE 45 IU/L (14-46); BILIRUBIN,TOTAL 0.5 mg/dL (0.1-1.4); BILIRUBIN-CONJUGATED 0.4 mg/dL (0.0-0.5); BILIRUBIN-UNCONJUGATED 0.1 mg/dL (0.0-1.1); CALCIUM 7.7 mg/dL (8.5-10.4); CARBON DIOXIDE 14 mEq/l (22-31); CHLORIDE 110 mEq/L (97-110); CREATININE 0.5 mg/dL (0.6-1.0); GLOMERULAR FILTRATION RATE > 60; GLUCOSE 80 mg/dL (70-100); POTASSIUM 4.1 mEq/L (3.5-5.2); SODIUM 138 mEq/L (134-144); TOTAL PROTEIN 5.5 g/dL (6.3-8.2)
[2016-11-17 06:14] LABS: PLATELET ESTIMATE ADEQUATE (ADEQ)
[2016-11-17] MEDS: HYDROCODONE/APAP 5/325 TAB PO PRN ×3 (10:29→21:10)
[2016-11-17] MEDS: CETIRIZINE 10 MG TAB PO SCH (10:29)
[2016-11-17] MEDS: predniSONE 20 MG TAB PO SCH ×2 (10:29→17:36)
[2016-11-17] MEDS: MONTELUKAST SODIUM 10 MG TAB PO SCH (10:29)
--- NOTE | 2016-11-17 11:03 | SOAPPROG ---
SOAP Progress Note Assessment/Plan: Assessment: HD #3 dilated small bowel, diarrhea and abdominal pain EGD yesterday with biopsies. Pathology pending If path negative, will need full-thickness biopsy via diagnostic lap Inpatient for pain control. If D/C over the weekend, will f/u with Dr. Lewis if path negative Regular diet OK because no colonoscopy planned today Discussed c Dr. Ross and Dr. Benedict. Seen c Dr. Lewis. S: Pain alternates between upper abdomen and low pelvis. Pain controlled. Corneal abrasion from EGD yesterday. O: Objective: Vital Signs Temp Pulse Resp BP Pulse Ox 36.8 C 117 H 20 110/79 94 11/17/16 07:53 11/17/16 07:53 11/17/16 07:53 11/17/16 07:53 11/17/16 07:53 Laboratory Results 11/17/16 04:45 11/17/16 04:45 11/16/16 11/17/16 11/18/16 05:59 05:59 05:59 Intake Total 0 2200 Output Total 600 Balance 0 1600 PT 15.1 SEC (12.0-15.0) H 11/16/16 04:22 INR 1.19 (0.83-1.16) H 11/16/16 04:22 ICD10 Worksheet Patient Problems: Problems Problem Status Onset Bowel obstruction Acute Pleural effusion Acute
--- NOTE | 2016-11-17 15:03 | SOAPPROG ---
[facility] Progress Note Assessment/Plan: Assessment: 1.) Eosinophilia with workup indicating this is not a primary hematologic/ myeloproliferative process. Likely as Secondary process. 2.) Gastrointestinal disorder? Eosinophilic Gastroenteritis? Appreciate GI work up with Endoscopy later today. Await findings/biopsy reports. May have sufficient information for trial of oral prednisone. 3.) Pain management issues- continue current orders while NPO and until after procedure. Plan: Has had EGD as of 11/16. Started on Prednisone 20 mg Q 12. Await EGD bx. May need explor lap. for small bowel full thickness biopsy- to be determined. Advance diet Will need GI longitudinal follow up. Our service will follow while in hospital. Her work up from a hematologic perspective was guided by Dr. Joiner. She may not need continuing Heme outpt. follow up. See above discussion. 11/17/16 15:03 Subjective: Has had a small breakfast and lunch today and is feeling better. No emesis, less abd. pain, and no stool output yet. Has R eye dryness from procedure related corneal irritation. Objective: in better spirits, in NAD HEENT- patch over R eye, no other facial assymetry. sclera anicteric, No oral lesions CVS- RSR, Lung- clear ABD- soft, mildly tender throughout, BS+ . No mass EXT- benign Labs as noted here: WBC 15.54 with 31 % Eosinophils, Absolute Eosinophil count 5.5 K Vital Signs Temp Pulse Resp BP Pulse Ox 36.6 C 103 H 18 107/62 96 11/17/16 11:54 11/17/16 11:54 11/17/16 11:54 11/17/16 11:54 11/17/16 11:54 Laboratory Results 11/17/16 04:45 11/17/16 04:45 11/16/16 11/17/16 11/18/16 05:59 05:59 05:59 Intake Total 0 2200 Output Total 600 Balance 0 1600 PT 15.1 SEC (12.0-15.0) H 11/16/16 04:22 INR 1.19 (0.83-1.16) H 11/16/16 04:22 ICD10 Worksheet Patient Problems: Problems Problem Status Onset Bowel obstruction Acute Pleural effusion Acute
[2016-11-17] MEDS: FAMOTIDINE 20 MG TAB PO SCH (15:35)
[2016-11-17] MEDS: FUROSEMIDE 20 MG TAB PO SCH (15:36)
[2016-11-17] MEDS: NAPROXEN SODIUM 220 MG TAB PO SCH ×2 (15:37→15:39)
--- NOTE | 2016-11-17 15:54 | HOSPPROG ---
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 Objective: Vital Signs Temp Pulse Resp BP Pulse Ox 36.6 C 103 H 18 107/62 96 11/17/16 11:54 11/17/16 11:54 11/17/16 11:54 11/17/16 11:54 11/17/16 11:54 Laboratory Results 11/17/16 04:45 11/17/16 04:45 11/16/16 11/17/16 11/18/16 05:59 05:59 05:59 Intake Total 0 2200 Output Total 600 Balance 0 1600 PT 15.1 SEC (12.0-15.0) H 11/16/16 04:22 INR 1.19 (0.83-1.16) H 11/16/16 04:22 d/w Dr. Lewis - she is advancing diet - okay for home when tolerated. If not better, surgical full thickness bowel biopsy is next - Physical Exam Constitutional: no apparent distress, appears nourished, not in pain Cardiovascular: regular rate and rhythym, no murmur, rub, or gallop Respiratory: no respiratory distress, no rales or rhonchi, clear to auscultation Gastrointestinal: normoactive bowel sounds, soft, non-tender abdomen, no palpable masses Skin: no rashes or abrasions, no fluctuance, no induration Neurologic: AAOx3, sensation intact bilaterally Psychiatric: interacting appropriately, not anxious, not encephalopathic, thought process linear ICD10 Worksheet Patient Problems: Problems Problem Status Onset Bowel obstruction Acute Pleural effusion Acute
[2016-11-17] MEDS: ENOXAPARIN 40 MG/0.4 ML SYR SC SCH (17:36)
[2016-11-17] MEDS: ASCORBIC ACID 500 MG TAB PO SCH ×2 (17:36→21:11)
[2016-11-17 20:26] LABS: STRONGYLOIDES IGG ANTIBODY NEGATIVE (Negative)
[2016-11-17] MEDS: PROMETHAZINE HCL 25 MG/ML INJ IVP PRN (21:13)
[2016-11-18] MEDS: HYDROCODONE/APAP 5/325 TAB PO PRN (01:52)
[2016-11-18] MEDS: LEVOTHYROXINE 150 MCG TAB PO SCH (05:12)
[2016-11-18 05:15] LABS: % IMMATURE GRANULYOCYTES 0.9 % (0.0-1.1); ADD DIFF? NO; ADD MORPH? NO; ADD SCAN? NO; ATYPICAL LYMPHOCYTE FLAG 0 (0-99); FRAGMENT RBC FLAG 0 (0-99); HEMATOCRIT 36.2 % (38.0-47.0); HEMOGLOBIN 12.2 g/dL (12.6-16.3); LEFT SHIFT FLG 0 (0-99); LIPEMIA HEMOLYSIS FLAG 80 (0-99); MEAN CELL HEMOGLOBIN 29.4 pg (27.9-34.1); MEAN CELL HEMOGLOBIN CONCENTR. 33.7 g/dL (32.4-36.7); MEAN CELL VOLUME 87.2 fL (81.5-99.8); MEAN PLATELET VOLUME 10.8 fL (8.7-11.7); PLATELET CLUMPS FLAG 0 (0-99); PLATELET COUNT 311 10^3/uL (150-400); RED BLOOD CELL COUNT 4.15 10^6/uL (4.18-5.33); RED CELL DISTRIBUTION WIDTH 13.8 % (11.5-15.2)
[2016-11-18 05:40] LABS: ALBUMIN 3.5 g/dL (3.5-5.0); BILIRUBIN,TOTAL 0.4 mg/dL (0.1-1.4); BILIRUBIN-CONJUGATED 0.3 mg/dL (0.0-0.5); BILIRUBIN-UNCONJUGATED 0.1 mg/dL (0.0-1.1); TOTAL PROTEIN 6.3 g/dL (6.3-8.2)
[2016-11-18 08:16] VITALS: BP 118/75; PULSE 100; RESP 20; TEMP 98; O2SAT 92
[2016-11-18] MEDS: NAPROXEN SODIUM 220 MG TAB PO SCH ×2 (08:24→08:26)
[2016-11-18] MEDS: MONTELUKAST SODIUM 10 MG TAB PO SCH (08:24)
[2016-11-18] MEDS: CETIRIZINE 10 MG TAB PO SCH (08:25)
[2016-11-18] MEDS: ASCORBIC ACID 500 MG TAB PO SCH (08:25)
[2016-11-18] MEDS: predniSONE 20 MG TAB PO SCH (08:25)
[2016-11-18] MEDS: ENOXAPARIN 40 MG/0.4 ML SYR SC SCH (08:26)
--- NOTE | 2016-11-18 11:10 | HOSPPROG ---
Hospitalist Progress Note Assessment/Plan: #Eosinophilic gasteroenteritis: path pending. Cont steroids, H2 christina, No NSAIDs #SBO: eating and drinking without issue, no N/V #Eosinophilic pleural effusion: cont po lasix #Acute abd pain: much improved #Disp: DC today Subjective: no N/V, eating well today. Wants to go home Objective: Vital Signs Temp Pulse Resp BP Pulse Ox 36.6 C 100 20 118/75 92 11/18/16 08:14 11/18/16 08:14 11/18/16 08:14 11/18/16 08:14 11/18/16 08:14 Microbiology 11/17/16 15:30 Gastrointestinal Tract Panel (PCR) - Final Stool No Organism Detected Laboratory Results 11/18/16 04:08 11/17/16 04:45 11/17/16 11/18/16 11/19/16 05:59 05:59 05:59 Intake Total 2200 500 Output Total 600 Balance 1600 500 PT 15.1 SEC (12.0-15.0) H 11/16/16 04:22 INR 1.19 (0.83-1.16) H 11/16/16 04:22 - Physical Exam Constitutional: no apparent distress Eyes: PERRL Ears, Nose, Mouth, Throat: moist mucous membranes, hearing normal, ears appear normal Cardiovascular: regular rate and rhythym, edema (trace LE edema) Respiratory: no respiratory distress Gastrointestinal: normoactive bowel sounds, soft, non-tender abdomen, No tenderness Genitourinary: no bladder fullness Skin: warm Musculoskeletal: full muscle strength Neurologic: AAOx3, asterixes Psychiatric: interacting appropriately ICD10 Worksheet Patient Problems: Problems Problem Status Onset Bowel obstruction Acute Pleural effusion Acute
--- NOTE | 2016-11-18 11:39 | SOAPPROG ---
SOAP Progress Note Assessment/Plan: Assessment: 1. 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 Plan: No follow up with heme 11/18/16 11:36 11/18/16 11:39 Subjective: Caitlin is doing very well and heading home today. Objective: Vital Signs Temp Pulse Resp BP Pulse Ox 36.6 C 100 20 118/75 92 11/18/16 08:14 11/18/16 08:14 11/18/16 08:14 11/18/16 08:14 11/18/16 08:14 Microbiology 11/17/16 15:30 Gastrointestinal Tract Panel (PCR) - Final Stool No Organism Detected Laboratory Results 11/18/16 04:08 11/17/16 04:45 11/17/16 11/18/16 11/19/16 05:59 05:59 05:59 Intake Total 2200 500 Output Total 600 Balance 1600 500 PT 15.1 SEC (12.0-15.0) H 11/16/16 04:22 INR 1.19 (0.83-1.16) H 11/16/16 04:22 ICD10 Worksheet Patient Problems: Problems Problem Status Onset Pleural effusion Acute Bowel obstruction Acute
--- NOTE | 2016-11-18 11:44 | GDS ---
[f rep st] DISCHARGE SUMMARY DISCHARGE DIAGNOSES: 1. Acute abdominal pain. 2. 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 3. Small bowel obstruction. 4. Eosinophilic pleural effusion. 5. Systemic inflammatory response syndrome. 6. Transaminitis. PROCEDURES: EGD, 11/16/2016: Erythematous mucosa in the stomach. Normal duodenum. High suspicion for eosinophilic esophagitis. Biopsies pending. HISTORY OF PRESENT ILLNESS: A pleasant 41-year-old female who has been ill for 6 weeks. She initial ly presented to [facility] with a small-bowel obstruction and underwent exploratory laparotom y that was negative. She also underwent EGD and colonoscopy at that time, which were also negative. She was also previously hospitalized here at [facility] with shortness of breath and found to have a pleura l effusion. Underwent thoracentesis that showed 91% eosinophils. Hematology was consulted, and she underwent bone marrow biopsy. Was feeling better after being started on antihistamines. Bone marrow showed reactive eosinophilia but no malignancy. She has also had a negative autoimmune and parasite s evaluation in the past. Since discharge from the hospital 2 weeks ago, she had 10 days in which she was feeling well but then developed profuse diarrhea for 6 days and increased abdominal pain. She also had massive GI distent ion. No nausea, vomiting, or fevers. HOSPITAL COURSE BY PROBLEM: 1. Acute abdominal pain/small bowel obstruction. This was demonstrated on CT here. Surgery has bee n following. Symptoms have improved. She is eating without nausea or vomiting, and no more diarrhea . She underwent EGD which shows most likely eosinophilic gastroenteritis. She was started on empiri c steroids. Pathology still pending. She is to follow up with Dr. Lewis as well as Dr. Rsos on ay. 2. 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 As stated, again noted on EGD. Path pending. Prednisone 20 mg b.i.d. plus famotidine. I advised her to avoid NSAIDs. 3. Eosinophilic pleural effusion, likely secondary to ascites. Continue low-dose Lasix. 4. SIRS : This has resolved. No evidence of infection. 5. Transaminitis, secondary to acute process. Much improved today. Recommend follow up with her P. 6. Abdominal pain: Again, secondary to likely eosinophilic esophagitis. P.r.n. Tylenol. She has a prescription for Vicodin. 7. Leukocytosis, likely secondary to steroids. A GI panel was negative. DISPOSITION: Patient is stable for discharge. NEW MEDICATIONS: 1. Famotidine 20 mg b.i.d. 2. Prednisone 20 mg b.i.d. FOLLOWUP: 1. Dr. Ross, call Sunday for path results. 2. Dr. Lewis for possible surgical biopsy if path negative. Follow up with PCP for repeat LFTs. /[id number]/MODL
--- NOTE | 2016-11-18 12:26 | ASDISCHSUM ---
Discharge Information Plan Status:Home with No Needs Medically Cleared to Leave: Discharge Date:11/18/2016 11:43 AM CM D/C Disposition:Home, Routine, Self-Care ADT D/C Disposition:Home, Routine, Self-Care Projected Discharge Date:11/18/2016 11:43 AM Transportation at D/C: Discharge Delay Reason: Follow-Up Date:11/18/2016 11:43 AM Discharge Slot: Final Diagnosis: Placement Information Patient Contact Information Contact Name:GRAYSON Relationship:Other Address: Work Phone: City: [facility] Phone: State/Zip Code: Email: Financial Information Financial Class:HMO and PPO Plans Primary Plan Desc:BERTHA CARTER Primary Plan Number:[id number] Secondary Plan Desc: Secondary Plan Number: Assessment Information [facility] CM Progress Note CM Note CM Note Notes: Pt has improved and will DC today with no needs. Date Signed: 11/18/2016 12:24 PM Electronically Signed By:Ceci Alexander LCSW Intervention Information Intervention Type:*Incorrect Registration Date of Service:11/15/2016 02:32 PM Patient Type:Inpatient Staff Member:ONOFER Child, Reema Hours: Discipline: Severity: Comment:
== END 2016-11-18 11:43 | disposition home or self-care (01) | DRG 389 ==
LOC: OBSVTOIN 10:13 → F1N 11:42
PROVIDERS: ADMIT Internal Medicine; ATTEND Internal Medicine
PROC: 0DB68ZX Excision of Stomach, Via Natural or Artificial Opening Endoscopic, Diagnostic (ICD-10-PCS; principal; 2016-11-16 13:45)
PROC: 0DB98ZX Excision of Duodenum, Via Natural or Artificial Opening Endoscopic, Diagnostic (ICD-10-PCS; principal; 2016-11-16 13:45)
PROC: 0DB58ZX Excision of Esophagus, Via Natural or Artificial Opening Endoscopic, Diagnostic (ICD-10-PCS; principal; 2016-11-16 13:45)
DX: K56.600 Partial intestinal obstruction, unspecified as to cause (principal); K52.81 Eosinophilic gastritis or gastroenteritis; R18.8 Other ascites; J90 Pleural effusion, not elsewhere classified; D72.1 Eosinophilia; R94.5 Abnormal results of liver function studies; K21.9 Gastro-esophageal reflux disease without esophagitis; E03.9 Hypothyroidism, unspecified; Z86.718 Personal history of other venous thrombosis and embolism; Z86.711 Personal history of pulmonary embolism; Z91.018 Allergy to other foods
CPT/HCPCS: 86635-90; 86682-90; 96374; J1170; J1650; J1885; J2405; J2550; J2704; Q9967